=== PATIENT | female | born 1965 | race Caucasian/White ===

== ENCOUNTER 2017-03-28 16:14 | Observation (INO) | payer OTHER ==
[2017-03-28] MEDS ORDERED: NITROGLYCERIN OINT 1 INCH/GM PACKET TOPICAL STA (17:28)
[2017-03-28] MEDS ORDERED: MORPHINE SULFATE 2 MG/ML SYRINGE IVP STA (17:28)
[2017-03-28] MEDS: SODIUM CHLORIDE 0.9% 1,000 ML IV STA (17:43)
[2017-03-28 17:48] LABS: Basophils % (A) 0 %; CH 29.5; Eosinophils # (A) 0.3 k/uL (0-0.7); Eosinophils % (A) 5 %; HCT 36.8 % (34.0-46.0); HDW 2.59; HGB 11.7 gm/dL (11.4-16.0); Luc # (Auto) 0.15; Luc % (Auto) 2; Lymphocytes # (A) 2.4 k/uL (1.0-4.8); Lymphocytes % (A) 38 %; MCH 28.6 pg (25.0-35.0); MCHC 31.8 g/dL (31.0-37.0); MCV 89.9 fL (80.0-100.0); Mean Platelet Volume 6.6; Monocytes # (A) 0.4 k/uL (0-1.0); Monocytes % (A) 6 %; Neutrophils # (A) 3.1 k/uL (1.3-7.7); Neutrophils % (A) 49 %; RBC 4.09 m/uL (3.80-5.40); RDW 13.6 % (11.5-15.5); WBC 6.4 k/uL (3.8-10.6); WBC (Perox) 6.36
[2017-03-28 17:59] LABS: Partial Thromboplastin Time 22.5 sec (22.0-30.0); Prothrombin Time 10.5 sec (9.0-12.0)
[2017-03-28 18:03] LABS: ALT 49 U/L (9-52); AST 30 U/L (14-36); Alkaline Phosphatase 58 U/L (38-126); Anion Gap 8 mmol/L; Blood Urea Nitrogen 16 mg/dL (7-17); Calcium 9.3 mg/dL (8.4-10.2); Carbon Dioxide 26 mmol/L (22-30); Chloride 104 mmol/L (98-107); Glucose 82 mg/dL (74-99); Magnesium 1.8 mg/dL (1.6-2.3); Non-African American GFR(MDRD) >60 (>60 ml/min/1.73 sqM); Potassium 4.3 mmol/L (3.5-5.1); Sodium 138 mmol/L (137-145); Total Bilirubin 0.2 mg/dL (0.2-1.3); Total Protein 6.6 g/dL (6.3-8.2)
[2017-03-28 18:10] LABS: Creatine Kinase 350 U/L (30-135)
--- NOTE | 2017-03-28 18:16 | XR ---
EXAMINATION TYPE: XR chest 2V DATE OF EXAM: 03/28/2017 COMPARISON: NONE HISTORY: Chest pain TECHNIQUE: Frontal and lateral views of the chest are obtained. FINDINGS: There is no heart failure nor confluent pneumonic infiltrate. There is mild coarsening of interstitial markings. There is no pleural effusion. Bony thorax is intact. Thoracic aorta is atherom atous. There are chest leads. IMPRESSION: No heart failure. Mild interstitial fibrotic changes.
[2017-03-28 18:24] LABS: Troponin I <0.012 ng/mL (0.000-0.034)
[2017-03-28 18:27] LABS: Creatine Kinase MB 3.5 ng/mL (0.0-2.4)
--- NOTE | 2017-03-28 18:36 | CT ---
EXAMINATION TYPE: CT brain wo con DATE OF EXAM: 03/28/2017 COMPARISON: NONE HISTORY: Patient complains of episode of slurred speech yesterday. Patient denies headache or dizzin ess. CT DLP: 700.2 mGycm Automated exposure control for dose reduction was used. FINDINGS: Ventricles have normal size. There is no mass effect nor midline shift. There is no sign of intracran ial hemorrhage. The calvarium is intact. IMPRESSION: NEGATIVE CT SCAN OF THE BRAIN.
[2017-03-28 19:19] VITALS: RESP 18
--- NOTE | 2017-03-28 19:55 | ED ---
Chest Pain HPI - General Chief Complaint: Chest Pain Stated Complaint: Chest Pain Time Seen by Provider: 03/28/17 17:12 Source: patient Mode of arrival: wheelchair Limitations: no limitations - History of Present Illness Initial Comments: 52 years old female with a history of diabetes hypertension and gastroesophageal reflux disease and chest pain 4 PM today pain started in the epigastric area and radiated down towards the sternal notch, has some shortness of breath and the chest pain was worse with deep breaths. Denies any jaw pain any left arm pain no nausea no vomiting no cold sweats chest pain has resolved and do not extend on arrival to the ER she still short of breath and review of system is negative otherwise - Related Data Home Medications Medication Instructions Recorded Confirmed Aspirin 325 mg PO DAILY 03/28/17 03/28/17 Atenolol [Tenormin] 50 mg PO DAILY 03/28/17 03/28/17 Citalopram Hydrobromide [CeleXA] 20 mg PO DAILY 03/28/17 03/28/17 Levothyroxine Sodium [Synthroid] 137 mcg PO DAILY 03/28/17 03/28/17 Linagliptin [Tradjenta] 5 mg PO DAILY 03/28/17 03/28/17 Omeprazole 40 mg PO DAILY 03/28/17 03/28/17 Pioglitazone [Actos] 45 mg PO DAILY 03/28/17 03/28/17 glipiZIDE XL [Glucotrol Xl] 10 mg PO DAILY 03/28/17 03/28/17 metFORMIN HCL 1,500 mg PO BID 03/28/17 03/28/17 Allergies Allergy/AdvReac Type Severity Reaction Status Date / Time bupropion [From Wellbutrin] Allergy Unknown Verified 03/28/17 16:31 Review of Systems ROS Statement: Those systems with pertinent positive or pertinent negative responses have been documented in the HPI. ROS Other: All systems not noted in ROS Statement are negative. EKG Findings - EKG Comments: EKG Findings:: EKG is normal sinus rhythm ventricular rate is 76 ME interval is 134 QRS duration is 88 ME interval, QT/QTc is 48/459 review of this EKG does not reveal any ST elevation or ST depression Past Medical History Past Medical History: Diabetes Mellitus, Hypertension, Thyroid Disorder History of Any Multi-Drug Resistant Organisms: None Reported Past Surgical History: Cholecystectomy, Orthopedic Surgery, Tonsillectomy Past Psychological History: Anxiety Smoking Status: Former smoker Past Alcohol Use History: Occasional Past Drug Use History: None Reported General Exam - General Exam Comments Initial Comments: General: The patient is awake and alert, in no distress, and does not appear acutely ill. Skin: Skin is warm and dry and no rashes or lesions are noted. Eye: Pupils are equal, round and reactive to light, extra-ocular movements are intact; there is normal conjunctiva bilaterally. Ears, nose, mouth and throat: There are moist mucous membranes and no oral lesions. Neck: The neck is supple, there is no tenderness or JVD. Cardiovascular: There is a regular rate and rhythm. No murmur, rub or gallop is appreciated. Respiratory: To auscultation bilateral, no wheezing no rhonchi no distress respiratory trujillo noticed Gastrointestinal: Soft, non-distended, non-tender abdomen without masses or organomegaly noted. There is no rebound or guarding present. Bowel sounds are unremarkable. Back: There is no tenderness to palpation in the midline. There is no obvious deformity. Musculoskeletal: Normal ROM, no tenderness, There is no pedal edema. There is no calf tenderness or swelling. No cords were appreciated. Neurological: CN II-XII intact, Cranial nerves III through XII are intact. There are no obvious motor or sensory deficits. Coordination appears grossly intact. Speech is normal. Psychiatric: Cooperative, appropriate mood & affect, normal judgment. Limitations: no limitations Course Vital Signs 03/28/17 03/28/17 03/28/17 16:17 18:36 19:18 Temperature 98.2 F Pulse Rate 78 68 76 Respiratory 20 16 18 Rate Blood Pressure 155/70 103/54 109/56 O2 Sat by Pulse 98 99 97 Oximetry 03/28/17 19:19 Temperature Pulse Rate 71 Respiratory 18 Rate Blood Pressure 102/47 O2 Sat by Pulse 97 Oximetry Critical Care Time Total Critical Care Time: 30 Critical Care Time: History of diabetes hypertension and gastroesophageal reflux disease considering her risk factors of EKG and troponin are negative she be hospitalized she will be heparinized and cardiology be consulted she also had a slurred speech for that we do the head CT head CT is normal after any bleed is ruled out for now she will be getting an aspirin and heparin Disposition Clinical Impression: Chest pain, Slurred speech Disposition: ADMITTED IP TO THIS HOSP Condition: Good Referrals: Sanches,Cordell, DO [Primary Care Provider] - 1-2 days
[2017-03-28] MEDS ORDERED: MORPHINE SULFATE 10 MG/ML SYRINGE IVP PRN (19:56)
[2017-03-28] MEDS ORDERED: HEPARIN SODIUM,PORCINE 5,000 UNIT/ML 1 ML VIAL IV ONE (19:56)
[2017-03-28] MEDS ORDERED: NITROGLYCERIN SL TABS 0.4 MG TAB SUBLINGUAL PRN (19:56)
[2017-03-28] MEDS ORDERED: HEPARIN SODIUM,PORCINE/D5W PMX 25,000 UNIT in DEXTROSE/WATER 1 500ML.BAG IV SCH (20:00)
[2017-03-28] MEDS: ACETAMINOPHEN TAB 325 MG TAB PO PRN (20:21)
[2017-03-28 23:32] LABS: Creatine Kinase 322 U/L (30-135)
[2017-03-28 23:45] LABS: Troponin I <0.012 ng/mL (0.000-0.034)
[2017-03-28 23:47] LABS: Creatine Kinase MB 3.1 ng/mL (0.0-2.4)
[2017-03-29] MEDS: ACETAMINOPHEN TAB 325 MG TAB PO PRN (05:05)
[2017-03-29 06:06] LABS: Cholesterol 195 mg/dL (<200); HDL Cholesterol 44 mg/dL (40-60)
[2017-03-29 06:13] LABS: Creatine Kinase 318 U/L (30-135)
[2017-03-29 06:24] LABS: Troponin I <0.012 ng/mL (0.000-0.034)
[2017-03-29 06:28] LABS: Creatine Kinase MB 3.5 ng/mL (0.0-2.4)
[2017-03-29] MEDS ORDERED: LEVOTHYROXINE 137 MCG TAB PO SCH (06:30)
[2017-03-29 07:30] LABS: Glucose,Whole Blood 121 mg/dL (75-99)
[2017-03-29] MEDS ORDERED: PANTOPRAZOLE 40 MG TABLET PO SCH (07:30)
[2017-03-29] MEDS ORDERED: glipiZIDE 5 MG TAB PO SCH (07:30)
[2017-03-29] MEDS ORDERED: CITALOPRAM HYDROBROMIDE 20 MG TAB PO SCH (09:00)
[2017-03-29] MEDS ORDERED: ATORVASTATIN 20 MG TAB PO SCH (09:00)
[2017-03-29] MEDS ORDERED: LINAGLIPTIN 5 MG TABLET PO SCH (09:00)
[2017-03-29] MEDS ORDERED: ASPIRIN 325 MG TAB PO SCH (09:00)
[2017-03-29] MEDS ORDERED: ATENOLOL 50 MG TAB PO SCH (09:00)
[2017-03-29] MEDS ORDERED: metFORMIN 500 MG TAB PO SCH (09:00)
[2017-03-29] MEDS ORDERED: PIOGLITAZONE 45 MG TAB PO SCH (09:00)
[2017-03-29] MEDS ORDERED: ALPRAZolam 0.25 MG TAB PO PRN (09:05)
[2017-03-29] MEDS ORDERED: ALPRAZolam 0.5 MG TAB PO PRN (09:05)
[2017-03-29] MEDS ORDERED: NITROGLYCERIN SL TABS 0.4 MG TAB SUBLINGUAL PRN (09:05)
[2017-03-29] MEDS ORDERED: ASPIRIN 325 MG TAB PO STA (09:05)
[2017-03-29] MEDS ORDERED: ATORVASTATIN 80 MG TAB PO STA (09:05)
[2017-03-29] MEDS ORDERED: SODIUM CHLORIDE 0.9% 1,000 ML in EMPTY BAG 1 BAG IV ONE (09:05)
--- NOTE | 2017-03-29 10:21 | P.CRDCN ---
History of Present Illness Consult date: 03/29/17 History of present illness: This is a 52-year-old female past medical history significant for hypertension, diabetes mellitus, obesity and former tobacco abuse. She quit smoking 3 years ago. She denies history of coronary artery disease and has never seen a hand profiler for any reason or undergone stress testing. She states yesterday while she was at work around 4 PM she was doing her normal routine and experienced midsternal chest tightness and squeezing up into her neck and around to her back. This persisted for about 2-3 minutes and then seemed to subside. It then recurred again a couple of minutes later. She complains of associated nausea and dizziness. She denies shortness of breath, palpitations or diaphoresis. She states she has gastroesophageal reflux disease which he takes omeprazole but this felt different to her. EKG on arrival sinus mechanism with no acute ST or T-wave abnormalities. Chest x-ray negative for any acute cardiopulmonary process. Blood pressure 134/73 with heart rate is 77. Cardiac enzymes negative 3, hemoglobin 11.7, platelets 310, d-dimer negative, potassium 4.3, magnesium 1.8, BUN 16, creatinine 0.8. Current cardiac medications include aspirin 325 mg daily and atenolol 50 mg daily. Review of Systems CONSTITUTIONAL: Denies fever. Denies chills. EYES: Denies blurred vision. Denies vision changes. Denies eye pain. EARS, NOSE, MOUTH & THROAT: Denies headache. Denies sore throat. Denies ear pain. CARDIOVASCULAR: Complains of one episode of chest tightness, resolved. Denies shortness of breath. Denies orthopnea. Denies PND. Denies palpitations. RESPIRATORY: Denies cough. GASTROINTESTINAL: Denies abdominal pain. Denies diarrhea. Denies constipation. Denies nausea. Denies vomitng. MUSCULOSKELETAL: Denies myalgias. INTEGUMENTARY: Denies pruitis. Denies rash. NEUROLOGIC: Denies numbness. Denies tingling. Denies weakness. PSYCHIATRIC: Denies anxiety. Denies depression. ENDOCRINE: Denies fatigue. Denies weight change. Denies polydipsia. Denies polyurina. GENITOURINARY: Denies burning, hematuria or urgency with micturation. HEMATOLOGIC: Denies history of anemia. Denies bleeding. Past Medical History Past Medical History: Asthma, Diabetes Mellitus, GERD/Reflux, Hypertension, Thyroid Disorder Additional Past Medical History / Comment(s): "ASTHMA WHEN I WAS A BABY", HIATAL HERNIA,MIGRAINES FROM AGE 6 TILL AGE 28 STATED AFTER THYROID WAS TX HAD NO MORE MIGRAINES AND WENT INTO EARLY MENOPAUSE .GRAVES DISEASE-"HAD HER THYROID RADIOACTIVELY DISSOLVED", ANXIETY, KIDNEY STONES, START OF CATARACTS. History of Any Multi-Drug Resistant Organisms: None Reported Past Surgical History: Cholecystectomy, Orthopedic Surgery, Tonsillectomy Additional Past Surgical History / Comment(s): LITHOTRIPSY, LAPROSCOPIC SX, LT MEDIAL/LAT TIB SX D/T INJURY, THYROID RADIOACTIVEY DISSOLVED. Past Anesthesia/Blood Transfusion Reactions: No Reported Reaction Smoking Status: Former smoker - Past Family History Father Family Medical History: Dementia, Diabetes Mellitus Mother Family Medical History: Diabetes Mellitus, Thyroid Disorder Additional Family Medical History / Comment(s): GRAVES DISEASE,HERNIA,DJD-LT KNEE REPLACMENT. INTESTINAL ABCESS-HAD COLOSTOMY-SINCE REVERSED AND BLADDER SX. Medications and Allergies Home Medications Medication Instructions Recorded Confirmed Type Aspirin 325 mg PO DAILY 03/28/17 03/28/17 History Atenolol [Tenormin] 50 mg PO DAILY 03/28/17 03/28/17 History Citalopram Hydrobromide [CeleXA] 20 mg PO DAILY 03/28/17 03/28/17 History Levothyroxine Sodium [Synthroid] 137 mcg PO DAILY 03/28/17 03/28/17 History Linagliptin [Tradjenta] 5 mg PO DAILY 03/28/17 03/28/17 History Omeprazole 40 mg PO DAILY 03/28/17 03/28/17 History Pioglitazone [Actos] 45 mg PO DAILY 03/28/17 03/28/17 History glipiZIDE XL [Glucotrol Xl] 10 mg PO DAILY 03/28/17 03/28/17 History metFORMIN HCL 1,000 mg PO DAILY 03/28/17 03/28/17 History Allergies Allergy/AdvReac Type Severity Reaction Status Date / Time bupropion [From Wellbutrin] Allergy Unknown Verified 03/28/17 21:52 Physical Exam Vitals: Vital Signs Temp Pulse Pulse Resp BP BP Pulse Ox 03/29/17 07:39 97.4 F L 77 18 134/73 95 03/29/17 04:00 98.4 F 80 18 126/50 94 L 03/29/17 00:00 70 18 03/28/17 22:56 97.8 F 67 18 101/47 94 L 03/28/17 22:55 97.6 F 68 18 110/53 94 L 03/28/17 22:00 18 03/28/17 20:23 77 18 123/63 99 03/28/17 19:19 71 18 102/47 97 03/28/17 19:18 76 18 109/56 97 03/28/17 18:36 68 16 103/54 99 03/28/17 16:17 98.2 F 78 20 155/70 98 Intake and Output 03/28/17 03/29/17 03/29/17 22:59 06:59 14:59 Intake Total 440 521.233 Balance 440 521.233 Intake: Intake, IV Titration 40 521.233 Amount Heparin Sodium,Porcine/ 20 361.233 D5w Pmx 25,000 unit In Dextrose/Water 1 500ml. bag @ 9.38 UNITS/KG/HR 19 .99 mls/hr IV .Q24H [facility]TI[facility] Rx#:[id number] Sodium Chloride 0.9% 1, 20 160 000 ml @ 100 mls/hr IV . Q10H STA Rx#:[id number] Oral 400 Other: # Voids 2 Weight 106.594 kg GENERAL: This is a 52-year-old female in no apparent distress at the time of my examination. Morbidly obese. HEENT: Head is atraumatic, normocephalic. Pupils are equal, round. Sclerae anicteric. Conjunctivae are clear. Mucous membranes of the mouth are moist. Neck is supple. There is no jugular venous distention. No carotid bruit is heard. LUNGS: Clear to auscultation no wheezes, rales or rhonchi. No chest wall tenderness is noted on palpation or with deep breathing. HEART: Regular rate and rhythm without murmurs, rubs or gallops. S1 and S2 heard. ABDOMEN: Soft, nontender. Bowel sounds are heard. No organomegaly noted. EXTREMITIES: 2+ peripheral pulses with no evidence of peripheral edema and no calf tenderness noted. NEUROLOGIC: Patient is awake, alert and oriented x3. Results 03/28/17 17:12 03/28/17 17:12 Cardiac Enzymes 03/28/17 03/28/17 03/28/17 Range/Units 17:12 17:12 22:49 AST 30 (14-36) U/L CK-MB (CK-2) 3.5 H* 3.1 H* (0.0-2.4) ng/mL Troponin I <0.012 <0.012 (0.000-0.034) ng/mL 03/29/17 Range/Units 05:30 AST (14-36) U/L CK-MB (CK-2) 3.5 H* (0.0-2.4) ng/mL Troponin I <0.012 (0.000-0.034) ng/mL Coagulation 03/28/17 03/29/17 Range/Units 17:12 05:30 PT 10.5 (9.0-12.0) sec APTT 22.5 28.8 (22.0-30.0) sec Lipids 03/29/17 Range/Units 05:30 Triglycerides 235 H (<150) mg/dL Cholesterol 195 (<200) mg/dL HDL Cholesterol 44 (40-60) mg/dL CBC 03/28/17 Range/Units 17:12 WBC 6.4 (3.8-10.6) k/uL RBC 4.09 (3.80-5.40) m/uL Hgb 11.7 (11.4-16.0) gm/dL Hct 36.8 (34.0-46.0) % Plt Count 310 (150-450) k/uL Comprehensive Metabolic Panel 03/28/17 Range/Units 17:12 Sodium 138 (137-145) mmol/L Potassium 4.3 (3.5-5.1) mmol/L Chloride 104 (98-107) mmol/L Carbon Dioxide 26 (22-30) mmol/L BUN 16 (7-17) mg/dL Creatinine 0.80 (0.52-1.04) mg/dL Glucose 82 (74-99) mg/dL Calcium 9.3 (8.4-10.2) mg/dL AST 30 (14-36) U/L ALT 49 (9-52) U/L Alkaline Phosphatase 58 (38-126) U/L Total Protein 6.6 (6.3-8.2) g/dL Albumin 3.8 (3.5-5.0) g/dL Current Medications Generic Name Dose Route Start Last Admin Trade Name Freq PRN Reason Stop Dose Admin Acetaminophen 650 mg 03/28/17 19:56 03/29/17 05:05 Tylenol Tab PO 650 mg Q4HR PRN Administration Pain Aspirin 325 mg 03/29/17 09:00 Aspirin PO DAILY [facility] Atenolol 50 mg 03/29/17 09:00 Tenormin PO DAILY [facility] Citalopram Hydrobromide 20 mg 03/29/17 09:00 Celexa PO DAILY [facility] Glipizide 5 mg 03/29/17 07:30 Glucotrol PO AC-BID [facility] Heparin Sodium/Dextrose 25,000 500 mls @ 19.99 mls/hr 03/28/17 20:00 06:21 unit/ IV Solution IV 12.38 units/kg/hr .Q24H ORTIZ 26.39 mls/hr Protocol Titration 9.38 UNITS/KG/HR Levothyroxine Sodium 137 mcg 03/29/17 06:30 03/29/17 05:08 Synthroid PO 137 mcg 0630 [facility]TIZ Administration Linagliptin 5 mg 03/29/17 09:00 Tradjenta PO DAILY [facility] Metformin HCl 1,000 mg 03/29/17 09:00 Glucophage PO DAILY [facility] Morphine Sulfate 2 mg 03/28/17 19:56 Morphine Sulfate (Inj) IVP Q5M PRN Chest Pain Nitroglycerin 0.4 mg 03/28/17 19:56 Nitrostat SUBLINGUAL Q5M PRN Chest Pain Pantoprazole Sodium 40 mg 03/29/17 07:30 Protonix PO AC-BRKFST [facility] Pioglitazone HCl 45 mg 03/29/17 09:00 Actos PO DAILY [facility] Intake and Output 03/28/17 03/29/17 03/29/17 22:59 06:59 14:59 Intake Total 440 521.233 Balance 440 521.233 Intake: Intake, IV Titration 40 521.233 Amount Heparin Sodium,Porcine/ 20 361.233 D5w Pmx 25,000 unit In Dextrose/Water 1 500ml. bag @ 9.38 UNITS/KG/HR 19 .99 mls/hr IV .Q24H [facility] Rx#:[id number] Sodium Chloride 0.9% 1, 20 160 000 ml @ 100 mls/hr IV . Q10H [facility] Rx#:[id number] Oral 400 Other: # Voids 2 Weight 106.594 kg 03/28/17 17:12 03/28/17 17:12 Assessment and Plan Assessment: ASSESSMENT 1. Chest pain, multiple risk factors for symptoms suggestive of acute coronary syndrome. 2. Essential hypertension 3. Diabetes mellitus 4. History of significant tobacco abuse, quit 3 years ago 5. Morbid obesity PLAN Obtain 2-D echocardiogram and Doppler study to assess cardiac structure and function. Due to the fact that the presentation of these symptoms are suggestive of an acute coronary syndrome we have recommended she proceed with cardiac catheterization at this time. She also has multiple risk factors. I have discussed the risks, benefits and alternative therapies for the above-mentioned procedure and for both sedation/analgesia as well as necessary blood product administration, if indicated, as they pertain to this patient. The patient has indicated understanding and acceptance of the risks and procedures discussed. She has agreed to proceed with the above stated procedure. She has been scheduled for this morning. Nurse Practitioner note has been reviewed, I agree with a documented findings and plan of care. Patient was seen and examined.
[2017-03-29] MEDS ORDERED: LIDOCAINE 2% INJ 20 MG/ML (20 ML MDV) ONE (11:01)
[2017-03-29] MEDS ORDERED: fentaNYL (PF) 50 MCG/ML 2 ML AMP ONE (11:01)
[2017-03-29] MEDS ORDERED: HEPARIN SODIUM 1,000 UN/ML (10ML VL) ONE (11:02)
[2017-03-29] MEDS ORDERED: VERAPAMIL 2.5 MG/ML 2 ML AMP ONE (11:02)
[2017-03-29] MEDS ORDERED: fentaNYL (PF) 50 MCG/ML 2 ML AMP IV ONE (11:09)
[2017-03-29] MEDS ORDERED: SODIUM CHLORIDE 0.9% 500 ML IV ONE (11:09)
[2017-03-29] MEDS ORDERED: VERAPAMIL SYRINGE (5 MG/10 ML) INTRAARTER ONE ×2 (11:20→11:39)
[2017-03-29] MEDS ORDERED: NITROGLYCERIN 1000MCG/10ML SYRINGE INTRACORON ONE (11:27)
[2017-03-29] MEDS ORDERED: HEPARIN SODIUM 1,000 UN/ML (10ML VL) IV ONE (11:38)
[2017-03-29] MEDS ORDERED: IOHEXOL 350 MG/ML 125ML BOTTLE INJ ONE (11:39)
[2017-03-29] MEDS ORDERED: RX INFO: IV CONTRAST WAS GIVEN 1 EACH MISC MISCELLANE PRN (11:54)
[2017-03-29] MEDS ORDERED: SODIUM CHLORIDE 0.9% 500 ML IV SCH (12:00)
[2017-03-29] MEDS: SODIUM CHLORIDE 0.9% 1,000 ML IV STA (12:00)
[2017-03-29 12:03] LABS: Glucose,Whole Blood 96 mg/dL (75-99)
--- NOTE | 2017-03-29 12:48 | CC ---
CARDIAC CATHETERIZATION REPORT Mrs. Vo is a 52-year-old female, known history of hypertension, hyperlipidemia, diabetes mellitus, prior history of smoking and a family history of premature coronary artery disease, who presented with symptoms of chest discomfort. Her cardiac enzymes were unremarkable, but because of her multiple risk factors and her presentation, recommendation made regarding cardiac catheterization. The procedures, risks and complications were discussed with the patient who is in full understanding and agreement. PROCEDURE: Patient was brought to the Care Management Coordinator in a fasting semi-sedated state after receiving fentanyl and Benadryl and achieving moderate conscious sedated state. She was draped and prepped in conventional fashion using Xylocaine anesthesia and Seldinger technique, a 6-Turkish sheath was introduced in the right radial artery. Selective right and left coronary angiography were performed using 5-Turkish 3.5 bend right and left Ruben catheter. Multiple views of the coronary artery including hemiaxial views were obtained. Following that, a 5-Turkish tight pigtail catheter was introduced into the left ventricle and a 30 degree [place] view of the left ventricle was obtained. Following that, the catheter and sheaths were removed. Hemostasis was obtained with deployment of a TR band. There was no immediate complication. Patient was returned to her room in a stable condition. FINDINGS: 1. LEFT MAIN: This is a short-sized vessel, bifurcating into left circumflex, left anterior descending artery Left main coronary artery has no evidence of high-grade stenosis. 2. LEFT ANTERIOR DESCENDING ARTERY: This is a large-sized vessel reaching toward the apex with a wraparound apex segment giving rise to a moderate-sized diagonal branch. At this side of the takeoff of the diagonal branch, there is a plaque of 20% to 30%. The rest of the vessel has no high-grade stenosis. 3. LEFT CIRCUMFLEX: This is a nondominant vessel giving rise to a large obtuse marginal branch. The left circumflex at the takeoff of the obtuse marginal branch has a 20% to 30% plaque. The rest of the vessel has no high-grade stenosis. 4. RIGHT CORONARY ARTERY: This is a large dominant vessel, bifurcating into PDA and posterolateral segment and branches. There was catheter-induced spasm proximally that resolved with intracoronary nitroglycerin. The right coronary artery as well as branches have no evidence of obstructive disease. 5. LEFT VENTRICULOGRAM: Left ventriculogram was performed in 30 degree [place] view and revealed normal left ventricular size and systolic function. Ejection fraction 60%. There was no significant mitral regurgitation. 6. HEMODYNAMICS: There was no gradient across the aortic valve. The left ventricular end-diastolic pressure was 16 to 20 mmHg. CONCLUSION: 1. Mild coronary artery disease involving the left anterior descending artery and the left circumflex. 2. Normal left ventricular size and systolic function. RECOMMENDATION: In view of finding in the anatomy, I would recommend to continue medical therapy with aggressive risk factor modifications being initiated. Those findings and recommendation were discussed with the patient who was in full understanding and agreement. Duration of the procedure is 44 minutes. MMODL / IJN: [id number] /
--- NOTE | 2017-03-29 12:50 | ECHOF ---
Referral Reason:cp MEASUREMENTS -------- HEIGHT: 154.9 cm WEIGHT: 106.6 kg BP: IVSd: 1.4 cm (0.6 - 1.1) LVIDd: 3.6 cm (3.9 - 5.3) LVPWd: 1.4 cm (0.6 - 1.1) IVSs: 2.4 cm LVIDs: 2.1 cm LVPWs: 1.5 cm LAESV Index (A-L): 21.96 ml/m Ao Diam: 3.1 cm (2.0 - 3.7) AV Cusp: 1.8 cm (1.5 - 2.6) LA Diam: 3.4 cm (2.7 - 3.8) MV EXCURSION: 13.189 mm (> 18.000) MV EF SLOPE: 68 mm/s (70 - 150) EPSS: 0.5 cm MV E Curly: 1.12 m/s MV DecT: 260 ms MV A Curly: 1.28 m/s MV E/A Ratio: 0.88 RAP: 5.00 mmHg RVSP: 21.06 mmHg FINDINGS -------- Sinus rhythm. This was a technically difficult study with suboptimal views. The left ventricular size is normal. There is moderate concentric left ventricular hypertrophy. O verall left ventricular systolic function is normal with, an EF between 55 - 60 %. The right ventricle is normal in size and function. The left atrium is normal in size. The right atrium is normal in size. 1.5mg of Definity was utilized for enhancement of images The aortic valve is trileaflet, and appears structurally normal. No aortic stenosis or regurgitation. The mitral valve is normal. There is trace mitral regurgitation. Trace tricuspid regurgitation present. The right ventricular systolic pressure, as measured by Dopp ler, is 21.06mmHg. The pulmonic valve was not well visualized. There is no pulmonic regurgitation present. The aortic root size is normal. There is no pericardial effusion. CONCLUSIONS -------- 1. Sinus rhythm. 2. This was a technically difficult study with suboptimal views. 3. There is moderate concentric left ventricular hypertrophy. 4. Overall left ventricular systolic function is normal with, an EF between 55 - 60 %. 5. The left atrium is normal in size. 6. 1.5mg of Definity was utilized for enhancement of images 7. The aortic valve is trileaflet, and appears structurally normal. No aortic stenosis or regurgitati on. 8. There is trace mitral regurgitation. 9. Trace tricuspid regurgitation present. 10. The right ventricular systolic pressure, as measured by Doppler, is 21.06mmHg. 11. The pulmonic valve was not well visualized. 12. There is no pulmonic regurgitation present. 13. The aortic root size is normal. 14. There is no pericardial effusion. PRODUCT ENGINEER: Marce Ruiz RDCS
[2017-03-29 15:48] VITALS: BP 118/59; PULSE 76; TEMP 97.9
--- NOTE | 2017-03-29 16:22 | P.HPIM ---
History of Present Illness H&P Date: 03/29/17 Chief Complaint: Chest pain This is a 52-year-old female past medical history significant for hypertension, diabetes mellitus, obesity and former tobacco abuse. She states yesterday while she was at work around 4 PM she was doing her normal routine and experienced midsternal chest tightness and squeezing up into her neck and around to her back rated it 7/10. This persisted for about 2-3 minutes and then seemed to subside. It then recurred again a couple of minutes later. She complains of associated nausea and dizziness. She denies shortness of breath, palpitations or diaphoresis. She states she has gastroesophageal reflux disease which he takes omeprazole but this felt different to her. She presented to the ER where her pulse was 78 blood pressure 155/70 O twos sats were 90% on room air her temperature is 90.8 8.2 and an EKG was done and showed normal sinus rhythm ventricular rate is 76 TX interval is 134 QRS duration is 88 TX interval, QT/QTc is 48/459 review of this EKG does not reveal any ST elevation or ST depression she had 2 sets of troponins that were negative. Cartilage was counseled to the ER was recommended to heparinize the patient she did have evidence of sores CT head was done and was normal he received aspirin and then placed in heparin GTT. Cardiology evaluated the patient on the morning of 03/29/2017 and recommended due to her clinical presentation that suggests is acute coronary syndrome along with a past medical history and comorbid conditions she was taken to the cardiac cath and which she underwent a radial heart cath without intervention it was stated the patient will need medical management with aggressive risk factor modifications as she did have evidence of mild coronary artery disease involving the left anterior descending artery and the left circumflex patient also had a 2-D echocardiogram showed EF of 55-60% with moderate concentric left ventricular hypertrophy. Patient is returning back to her room in stable condition she laced on radial compress per protocol she was cleared for discharge from a cardiac standpoint patient's remained chest pain-free she tolerated her diet there was no excessive bleeding or hematoma to cath site patient was instructed to follow-up with her primary care physician along with cardiology. Review of Systems All systems: negative Constitutional: Reports as per HPI Past Medical History Past Medical History: Asthma, Diabetes Mellitus, GERD/Reflux, Hypertension, Thyroid Disorder Additional Past Medical History / Comment(s): "ASTHMA WHEN I WAS A BABY", HIATAL HERNIA,MIGRAINES FROM AGE 6 TILL AGE 28 STATED AFTER THYROID WAS TX HAD NO MORE MIGRAINES AND WENT INTO EARLY MENOPAUSE .GRAVES DISEASE-"HAD HER THYROID RADIOACTIVELY DISSOLVED", ANXIETY, KIDNEY STONES, START OF CATARACTS. History of Any Multi-Drug Resistant Organisms: None Reported Past Surgical History: Cholecystectomy, Orthopedic Surgery, Tonsillectomy Additional Past Surgical History / Comment(s): LITHOTRIPSY, LAPROSCOPIC SX, LT MEDIAL/LAT TIB SX D/T INJURY, THYROID RADIOACTIVEY DISSOLVED. Past Anesthesia/Blood Transfusion Reactions: No Reported Reaction Smoking Status: Former smoker - Past Family History Father Family Medical History: Dementia, Diabetes Mellitus Mother Family Medical History: Diabetes Mellitus, Thyroid Disorder Additional Family Medical History / Comment(s): GRAVES DISEASE,HERNIA,DJD-LT KNEE REPLACMENT. INTESTINAL ABCESS-HAD COLOSTOMY-SINCE REVERSED AND BLADDER SX. Medications and Allergies Home Medications Medication Instructions Recorded Confirmed Type Aspirin 325 mg PO DAILY 03/28/17 03/28/17 History Atenolol [Tenormin] 50 mg PO DAILY 03/28/17 03/28/17 History Citalopram Hydrobromide [CeleXA] 20 mg PO DAILY 03/28/17 03/28/17 History Levothyroxine Sodium [Synthroid] 137 mcg PO DAILY 03/28/17 03/28/17 History Linagliptin [Tradjenta] 5 mg PO DAILY 03/28/17 03/28/17 History Omeprazole 40 mg PO DAILY 03/28/17 03/28/17 History Pioglitazone [Actos] 45 mg PO DAILY 03/28/17 03/28/17 History glipiZIDE XL [Glucotrol Xl] 10 mg PO DAILY 03/28/17 03/28/17 History metFORMIN HCL 1,000 mg PO DAILY 03/28/17 03/28/17 History Atorvastatin [Lipitor] 40 mg PO DAILY #30 tab 03/29/17 Rx Allergies Allergy/AdvReac Type Severity Reaction Status Date / Time bupropion [From Wellbutrin] Allergy Unknown Verified 03/28/17 21:52 Physical Exam Vitals: Vital Signs Temp Pulse Pulse Resp BP BP Pulse Ox 03/29/17 15:47 97.9 F 76 18 118/59 94 L 03/29/17 13:40 82 117/56 96 03/29/17 13:10 80 115/58 96 03/29/17 12:40 92 146/78 93 L 03/29/17 12:25 67 138/77 93 L 03/29/17 12:10 76 151/74 96 03/29/17 12:00 18 03/29/17 11:55 98.1 F 76 18 135/79 95 03/29/17 07:39 97.4 F L 77 18 134/73 95 03/29/17 04:00 98.4 F 80 18 126/50 94 L 03/29/17 00:00 70 18 03/28/17 22:56 97.8 F 67 18 101/47 94 L 03/28/17 22:55 97.6 F 68 18 110/53 94 L 03/28/17 22:00 18 03/28/17 20:23 77 18 123/63 99 03/28/17 19:19 71 18 102/47 97 03/28/17 19:18 76 18 109/56 97 03/28/17 18:36 68 16 103/54 99 03/28/17 16:17 98.2 F 78 20 155/70 98 Intake and Output 03/29/17 03/29/17 03/29/17 06:59 14:59 22:59 Intake Total 521.233 410 Balance 521.233 410 Intake: IV 50 Intake, IV Titration 521.233 Amount Heparin Sodium,Porcine/ 361.233 D5w Pmx 25,000 unit In Dextrose/Water 1 500ml. bag @ 9.38 UNITS/KG/HR 19 .99 mls/hr IV .Q24H ORTIZ Rx#:[id number] Sodium Chloride 0.9% 1, 160 000 ml @ 100 mls/hr IV . Q10H STA Rx#:[id number] Oral 360 Other: # Voids 2 GENERAL: This is a 52-year-old female in no apparent distress over the obese sitting upright eating lunch she's calm cooperative nontoxic-appearing HEENT: Head is atraumatic, normocephalic. Pupils are equal, round. Sclerae anicteric. Conjunctivae are clear. Mucous membranes of the mouth are moist. Neck is supple. There is no jugular venous distention. No carotid bruit is heard. LUNGS: Clear to auscultation no wheezes, rales or rhonchi. No chest wall tenderness is noted on palpation or with deep breathing. HEART: Regular rate and rhythm without murmurs, rubs or gallops. S1 and S2 heard. ABDOMEN: Soft, nontender. Bowel sounds are heard. No organomegaly noted. EXTREMITIES: 2+ peripheral pulses with no evidence of peripheral edema and no calf tenderness noted. NEUROLOGIC: Patient is awake, alert and oriented x3. No focal deficits, face is symmetrical no droops speech is full clear and coherent Results CBC & Chem 7: 03/28/17 17:12 03/28/17 17:12 Labs: Abnormal Lab Results - Last 24 Hours (Table) 03/28/17 03/28/17 03/29/17 Range/Units 17:12 22:49 05:30 POC Glucose (mg/dL) (75-99) mg/dL Hemoglobin A1c 6.4 H (4.0-6.0) % Total Creatine Kinase 350 H 322 H (30-135) U/L CK-MB (CK-2) 3.5 H* 3.1 H* (0.0-2.4) ng/mL Triglycerides (<150) mg/dL LDL Cholesterol, Calc (0-99) mg/dL 03/29/17 03/29/17 03/29/17 Range/Units 05:30 05:30 07:25 POC Glucose (mg/dL) 121 H (75-99) mg/dL Hemoglobin A1c (4.0-6.0) % Total Creatine Kinase 318 H (30-135) U/L CK-MB (CK-2) 3.5 H* (0.0-2.4) ng/mL Triglycerides 235 H (<150) mg/dL LDL Cholesterol, Calc 104 H (0-99) mg/dL Thrombosis Risk Factor Assmnt - Choose All That Apply Any of the Below Risk Factors Present?: Yes Each Factor Represents 1 point: Age 41-60 years, Obesity (BMI >25) Other Risk Factors: No Other congenital or acquired thrombophilia - If yes, enter type in comment: No Thrombosis Risk Factor Assessment Total Risk Factor Score: 2 Thrombosis Risk Factor Assessment Level: Low Risk Assessment and Plan Assessment: ASSESSMENT 1. Chest pain, multiple risk factors for symptoms suggestive of acute coronary syndrome. Patient status post radial heart cath that showed mild coronary artery disease in the left anterior descending along the left circumflex cardiology recommends aggressive risk active modifications. Patient's are to follow with cardiology and outpatient she will be placed on atenolol Lipitor patient instructed on left side modifications improper eating habits 2. Essential hypertension patient to continue with atenolol 3. Diabetes mellitus2 patient on metformin glipizide and Actos hold these medications and resume on 03/30/2017 4. History of significant tobacco abuse, quit 3 years ago 5. Morbid obesity 6.Patient is to resume Synthroid 137 mics daily 7. GERD patient to resume omeprazole 8. History of depression patient to resume Celexa Patient to be discharged once hemostasis was achieved on her right radial artery. Time with Patient: Greater than 30
--- NOTE | 2017-03-29 16:29 | P.DS ---
Providers Date of admission: 03/28/17 19:56 Expected date of discharge: 03/29/17 Attending physician: Yashira Patiño Consults: 03/28/17 19:56 Consult Physician Urgent Consulting Provider: Errol Cheema Consult Reason/Comments: Chest pain Do you want consulting provider notified?: Yes Primary care physician: Cordell Sanches [facility] Course: This is a 52-year-old female past medical history significant for hypertension, diabetes mellitus, obesity and former tobacco abuse. She states yesterday while she was at work around 4 PM she was doing her normal routine and experienced midsternal chest tightness and squeezing up into her neck and around to her back rated it 7/10. This persisted for about 2-3 minutes and then seemed to subside. It then recurred again a couple of minutes later. She complains of associated nausea and dizziness. She denies shortness of breath, palpitations or diaphoresis. She states she has gastroesophageal reflux disease which he takes omeprazole but this felt different to her. She presented to the ER where her pulse was 78 blood pressure 155/70 O twos sats were 90% on room air her temperature is 90.8 8.2 and an EKG was done and showed normal sinus rhythm ventricular rate is 76 ID interval is 134 QRS duration is 88 ID interval, QT/QTc is 48/459 review of this EKG does not reveal any ST elevation or ST depression she had 2 sets of troponins that were negative. Cartilage was counseled to the ER was recommended to heparinize the patient she did have evidence of sores CT head was done and was normal he received aspirin and then placed in heparin GTT. Cardiology evaluated the patient on the morning of 03/29/2017 and recommended due to her clinical presentation that suggests is acute coronary syndrome along with a past medical history and comorbid conditions she was taken to the cardiac cath and which she underwent a radial heart cath without intervention it was stated the patient will need medical management with aggressive risk factor modifications as she did have evidence of mild coronary artery disease involving the left anterior descending artery and the left circumflex patient also had a 2-D echocardiogram showed EF of 55-60% with moderate concentric left ventricular hypertrophy. Patient is returning back to her room in stable condition she laced on radial compress per protocol she was cleared for discharge from a cardiac standpoint patient's remained chest pain-free she tolerated her diet there was no excessive bleeding or hematoma to cath site patient was instructed to follow-up with her primary care physician along with cardiology. ASSESSMENT 1. Chest pain, multiple risk factors for symptoms suggestive of acute coronary syndrome. Patient status post radial heart cath that showed mild coronary artery disease in the left anterior descending along the left circumflex cardiology recommends aggressive risk active modifications. Patient's are to follow with cardiology and outpatient she will be placed on atenolol Lipitor patient instructed on left side modifications improper eating habits 2. Essential hypertension patient to continue with atenolol 3. Diabetes mellitus2 patient on metformin glipizide and Actos hold these medications and resume on 03/30/2017 4. History of significant tobacco abuse, quit 3 years ago 5. Morbid obesity 6.Patient is to resume Synthroid 137 mics daily 7. GERD patient to resume omeprazole 8. History of depression patient to resume Celexa Patient to be discharged once hemostasis was achieved on her right radial artery. Procedures: Cardiac catheterization via right radial artery. 2-D echocardiogram Patient Condition at Discharge: Good Plan - Discharge Summary Discharge Rx Participant: Yes New Discharge Prescriptions: New Atorvastatin [Lipitor] 40 mg PO DAILY #30 tab Nitroglycerin Sl Tabs [Nitrostat] 0.4 mg SUBLINGUAL Q5M PRN #20 tab PRN Reason: Chest Pain Continue Omeprazole 40 mg PO DAILY Aspirin 325 mg PO DAILY Levothyroxine Sodium [Synthroid] 137 mcg PO DAILY Citalopram Hydrobromide [CeleXA] 20 mg PO DAILY Atenolol [Tenormin] 50 mg PO DAILY glipiZIDE XL [Glucotrol XL] 10 mg PO DAILY #0 Linagliptin [Tradjenta] 5 mg PO DAILY #0 metFORMIN HCL 1,000 mg PO DAILY #0 Pioglitazone [Actos] 45 mg PO DAILY #0 Discharge Medication List Aspirin 325 mg PO DAILY 03/28/17 [History] Atenolol [Tenormin] 50 mg PO DAILY 03/28/17 [History] Citalopram Hydrobromide [CeleXA] 20 mg PO DAILY 03/28/17 [History] Levothyroxine Sodium [Synthroid] 137 mcg PO DAILY 03/28/17 [History] Omeprazole 40 mg PO DAILY 03/28/17 [History] Atorvastatin [Lipitor] 40 mg PO DAILY #30 tab 03/29/17 [Rx] Linagliptin [Tradjenta] 5 mg PO DAILY #0 03/29/17 [Rx] Nitroglycerin Sl Tabs [Nitrostat] 0.4 mg SUBLINGUAL Q5M PRN #20 tab 03/29/17 [Rx ] Pioglitazone [Actos] 45 mg PO DAILY #0 03/29/17 [Rx] glipiZIDE XL [Glucotrol XL] 10 mg PO DAILY #0 03/29/17 [Rx] metFORMIN HCL 1,000 mg PO DAILY #0 03/29/17 [Rx] Follow up Appointment(s)/Referral(s): Van Payne MD [STAFF PHYSICIAN] - 1 Week (Patient has followup appointment April 06 8:45am) Cordell Sanches DO [Primary Care Provider] - 1-2 days Activity/Diet/Wound Care/Special Instructions: Hold Metformin for 48 hours. Discharge Disposition: HOME SELF-CARE
[2017-03-30] MEDS ORDERED: ATORVASTATIN 40 MG TAB PO SCH (09:00)
[2017-03-30] MEDS ORDERED: ASPIRIN 81 MG PO SCH (09:00)
[2017-03-30] MEDS ORDERED: ASPIRIN 325 MG TAB PO SCH (09:00)
[2017-03-30] MEDS ORDERED: ATORVASTATIN 20 MG TAB PO SCH (09:00)
== END 2017-03-29 17:00 | disposition home or self-care (01) ==
LOC: EC 16:14 → 3OBS 19:56
PROVIDERS: ADMIT Hospitalist; ATTEND Hospitalist
DX: I25.10 Atherosclerotic heart disease of native coronary artery without angina pectoris (principal); E11.9 Type 2 diabetes mellitus without complications; I10 Essential (primary) hypertension; K21.9 Gastro-esophageal reflux disease without esophagitis; F41.9 Anxiety disorder, unspecified; E05.00 Thyrotoxicosis with diffuse goiter without thyrotoxic crisis or storm; J45.909 Unspecified asthma, uncomplicated; E66.01 Morbid (severe) obesity due to excess calories; R47.81 Slurred speech; Z79.82 Long term (current) use of aspirin; Z79.899 Other long term (current) drug therapy; Z79.84 Long term (current) use of oral hypoglycemic drugs; Z88.8 Allergy status to other drugs, medicaments and biological substances; Z87.891 Personal history of nicotine dependence; Z68.41 Body mass index [BMI] 40.0-44.9, adult; F32.9 Major depressive disorder, single episode, unspecified
CPT/HCPCS: 96366 ×2; 96376; 96365; 99291; 36415; 93005; 93306; 93458; 85379; 80061; 80053; 82550 ×2; 82553 ×2; 83735; 84484 ×2; 85025; 85610; 85730 ×2; 83036; 71020; 70450; G0378 ×2; C1894; C1769; J1644 ×3; J3010; Q9957; Q9967

== ENCOUNTER 2018-07-19 08:07 | Emergency (ER) | payer OTHER ==
[2018-07-19] MEDS ORDERED: SODIUM CHLORIDE 0.9% 500 ML 500 ML IV STA (08:26)
--- NOTE | 2018-07-19 08:42 | ED ---
Abdominal Pain HPI - General Chief Complaint: Abdominal Pain Stated Complaint: Right side pain Time Seen by Provider: 07/19/18 08:26 Source: patient Mode of arrival: ambulatory Limitations: no limitations - History of Present Illness Initial Comments: 53-year-old female hypertension, diabetes and thyroid disorder presenting today for chief complaint of right upper quadrant abdominal pain that radiates towards the right side of her back. Patient states that she began experiencing right upper quadrant and right sided back pain around 1:30 PM yesterday, she states she thought it might be related to her back and presented to the chiropractor, she states this helped minimally however the pain returned this morning. Patient states she did have a recent ultrasound of her liver as she had routine blood draw with incidental finding of elevated liver enzymes, she states she is currently waiting for results of her hepatitis panel. Patient states she has had a previous cholecystectomy 12 years prior. Patient denies any trauma to the abdomen or back, fever, chills, jaundice, vomiting, diarrhea, chest pain, shortness of breath, dyspnea on exertion, lower extremity edema. Patient does admit to some occasional nausea. Patient states she has had a previous cardiac catheterization in 2017, she states there was one tiny area of "blockage" but no stent was needed. Upon arrival today pt is ambulating without difficulty, appearing well no distress. Remaining ROS (-), patient denies any alcohol abuse, rash, numbness or tingling, dysuria or hematuria, constipation, headaches or visual changes, or any other complaints. - Related Data Home Medications Medication Instructions Recorded Confirmed Atenolol [Tenormin] 50 mg PO DAILY 03/28/17 07/19/18 Citalopram Hydrobromide [CeleXA] 20 mg PO DAILY 03/28/17 07/19/18 Levothyroxine Sodium [Synthroid] 137 mcg PO DAILY 03/28/17 07/19/18 Omeprazole 40 mg PO DAILY 03/28/17 07/19/18 Cholecalciferol [Vitamin D3] 1,000 unit PO DAILY 07/19/18 07/19/18 Etodolac 500 mg PO BID 07/19/18 07/19/18 Fenofibrate [Lofibra] 160 mg PO DAILY 07/19/18 07/19/18 Insulin Degludec [Tresiba] 30 units SQ HS 07/19/18 07/19/18 Pioglitazone [Actos] 30 mg PO DAILY 07/19/18 07/19/18 metFORMIN HCL 1,000 mg PO BID 07/19/18 07/19/18 Previous Rx's Medication Instructions Recorded Nitroglycerin Sl Tabs [Nitrostat] 0.4 mg SUBLINGUAL Q5M PRN #20 tab 03/29/17 Allergies Allergy/AdvReac Type Severity Reaction Status Date / Time bupropion [From Wellbutrin] Allergy Unknown Verified 07/19/18 09:36 Review of Systems ROS Statement: Those systems with pertinent positive or pertinent negative responses have been documented in the HPI. ROS Other: All systems not noted in ROS Statement are negative. Past Medical History Past Medical History: Asthma, Diabetes Mellitus, GERD/Reflux, Hypertension, Thyroid Disorder Additional Past Medical History / Comment(s): "ASTHMA WHEN I WAS A BABY", HIATAL HERNIA,MIGRAINES FROM AGE 6 TILL AGE 28 STATED AFTER THYROID WAS TX HAD NO MORE MIGRAINES AND WENT INTO EARLY MENOPAUSE .GRAVES DISEASE-"HAD HER THYROID RADIOACTIVELY DISSOLVED", ANXIETY, KIDNEY STONES, START OF CATARACTS. History of Any Multi-Drug Resistant Organisms: None Reported Past Surgical History: Cholecystectomy, Orthopedic Surgery, Tonsillectomy Additional Past Surgical History / Comment(s): LITHOTRIPSY, LAPROSCOPIC SX, LT MEDIAL/LAT TIB SX D/T INJURY, THYROID RADIOACTIVEY DISSOLVED. Past Anesthesia/Blood Transfusion Reactions: No Reported Reaction Past Psychological History: Anxiety Smoking Status: Former smoker Past Alcohol Use History: Occasional Past Drug Use History: None Reported - Past Family History Father Family Medical History: Dementia, Diabetes Mellitus Mother Family Medical History: Diabetes Mellitus, Thyroid Disorder Additional Family Medical History / Comment(s): GRAVES DISEASE,HERNIA,DJD-LT KNEE REPLACMENT. INTESTINAL ABCESS-HAD COLOSTOMY-SINCE REVERSED AND BLADDER SX. General Exam - General Exam Comments Initial Comments: General: The patient is awake and alert, in no distress, and does not appear acutely ill. Eye: +3 mm pupils are equal, round and reactive to light, extra-ocular movements are intact. No nystagmus. There is normal conjunctiva bilaterally. No signs of icterus. Ears, nose, mouth and throat: There are moist mucous membranes and no oral lesions. Neck: The neck is supple, there is no tenderness or JVD. Cardiovascular: There is a regular rate and rhythm. No murmur, rub or gallop is appreciated. Respiratory: Lungs are clear to auscultation, respirations are non-labored, breath sounds are equal. No wheezes, stridor, rales, or rhonchi. Gastrointestinal: No noted diaphoresis, jaundice, pallor, protecting postures or squirming. Symmetrical pigmentation of abdomen without signs of inflammation. Umbilicus mildline, inverted without swelling. No dilated veins. Abdomen contour obese, no noted abdominal distention. No visible masses. No peristalsis, aortic pulsations, or ventral hernia. Bowel sounds audible in all 4 quadrants, unremarkable. No friction rubs or venous hums. Mild tenderness to palpation of the RUQ. No rigidity or guarding. Liver edge, not palpable. Spleen edge, right and left kidney not palpable. Superior bladder margin non-tender. Special Testing: Negative Perris, Rovsing, McBurney, Daniel, cutaneous hyperesthesia. Negative Heel Jar test. No CVA tenderness. Digital rectal exam deferred. Negative lopez turners or cullens sign Musculoskeletal: Normal ROM, no tenderness. Strength 5/5. Sensation intact. Pulses equal bilaterally 2+. Neurological: A&O x 3. CN II-XII intact, There are no obvious motor or sensory deficits. Coordination appears grossly intact. Speech is normal. Skin: Skin is warm and dry and no rashes or lesions are noted. Psychiatric: Cooperative, appropriate mood & affect, normal judgment. Limitations: no limitations Course Vital Signs 07/19/18 07/19/18 07/19/18 08:23 11:02 11:43 Temperature 98.1 F 98.6 F Pulse Rate 80 76 72 Respiratory 20 18 14 Rate Blood Pressure 124/75 152/91 145/70 O2 Sat by Pulse 94 L 97 92 L Oximetry Medical Decision Making - Medical Decision Making Well-appearing 53-year-old female with RUQ pain radiating toward back, with previous outpatient laboratory studies revealing elevated transaminases. Upon laboratory studies today these remain elevated. Ultrasound revealed no evidence of obstruction. CT was obtained revealing 1.5 cm left adrenal nodule, this appears incidental I did discuss this finding with patient as well as appropriate follow-up with GI referral. Other findings correlate with hepatic steatosis. Patient given morphine for pain and fluids. I discussed case with attending provider Dr. Ochoa who reviewed imaging studies recommending outpatient follow-up. Pt is hemodynamically stable denying any other associated symptoms. Pt is agreeable with plan and discharge. Pt given GI referral for further evaluation. Pt denied any urinary symptoms, pending urine culture. - Lab Data Result diagrams: 07/19/18 08:44 07/19/18 08:44 Lab Results 07/19/18 07/19/18 07/19/18 Range/Units 08:44 08:44 08:44 WBC 7.3 (3.8-10.6) k/uL RBC 4.62 (3.80-5.40) m/uL Hgb 13.1 (11.4-16.0) gm/dL Hct 40.7 (34.0-46.0) % MCV 88.2 (80.0-100.0) fL MCH 28.4 (25.0-35.0) pg MCHC 32.3 (31.0-37.0) g/dL RDW 13.9 (11.5-15.5) % Plt Count 379 (150-450) k/uL Neutrophils % 55 % Lymphocytes % 31 % Monocytes % 4 % Eosinophils % 7 % Basophils % 1 % Neutrophils # 4.0 (1.3-7.7) k/uL Lymphocytes # 2.3 (1.0-4.8) k/uL Monocytes # 0.3 (0-1.0) k/uL Eosinophils # 0.5 (0-0.7) k/uL Basophils # 0.1 (0-0.2) k/uL Sodium 139 (137-145) mmol/L Potassium 5.1 (3.5-5.1) mmol/L Chloride 103 (98-107) mmol/L Carbon Dioxide 24 (22-30) mmol/L Anion Gap 12 mmol/L BUN 17 (7-17) mg/dL Creatinine 0.81 (0.52-1.04) mg/dL Est GFR (CKD-EPI)AfAm >90 (>60 ml/min/1.73 sqM) Est GFR (CKD-EPI)NonAf 83 (>60 ml/min/1.73 sqM) Glucose 151 H (74-99) mg/dL Calcium 10.1 (8.4-10.2) mg/dL Total Bilirubin 0.5 (0.2-1.3) mg/dL AST 91 H (14-36) U/L ALT 89 H (9-52) U/L Alkaline Phosphatase 67 (38-126) U/L Troponin I (0.000-0.034) ng/mL Total Protein 7.4 (6.3-8.2) g/dL Albumin 4.5 (3.5-5.0) g/dL Amylase 41 (30-110) U/L Lipase 113 (23-300) U/L Urine Color Yellow Urine Appearance Clear (Clear) Urine pH 6.0 (5.0-8.0) Ur Specific [place] 1.015 (1.001-1.035) Urine Protein Negative (Negative) Urine Glucose (UA) Negative (Negative) Urine Ketones Negative (Negative) Urine Blood Negative (Negative) Urine Nitrite Negative (Negative) Urine Bilirubin 2+ H (Negative) Urine Urobilinogen <2.0 (<2.0) mg/dL Ur Leukocyte Esterase Small H (Negative) Urine WBC 23 H (0-5) /hpf Ur Squamous Epith Cells 3 (0-4) /hpf Urine Bacteria Moderate H (None) /hpf Urine Mucus Occasional H (None) /hpf 07/19/18 Range/Units 08:44 WBC (3.8-10.6) k/uL RBC (3.80-5.40) m/uL Hgb (11.4-16.0) gm/dL Hct (34.0-46.0) % MCV (80.0-100.0) fL MCH (25.0-35.0) pg MCHC (31.0-37.0) g/dL RDW (11.5-15.5) % Plt Count (150-450) k/uL Neutrophils % % Lymphocytes % % Monocytes % % Eosinophils % % Basophils % % Neutrophils # (1.3-7.7) k/uL Lymphocytes # (1.0-4.8) k/uL Monocytes # (0-1.0) k/uL Eosinophils # (0-0.7) k/uL Basophils # (0-0.2) k/uL Sodium (137-145) mmol/L Potassium (3.5-5.1) mmol/L Chloride (98-107) mmol/L Carbon Dioxide (22-30) mmol/L Anion Gap mmol/L BUN (7-17) mg/dL Creatinine (0.52-1.04) mg/dL Est GFR (CKD-EPI)AfAm (>60 ml/min/1.73 sqM) Est GFR (CKD-EPI)NonAf (>60 ml/min/1.73 sqM) Glucose (74-99) mg/dL Calcium (8.4-10.2) mg/dL Total Bilirubin (0.2-1.3) mg/dL AST (14-36) U/L ALT (9-52) U/L Alkaline Phosphatase (38-126) U/L Troponin I <0.012 (0.000-0.034) ng/mL Total Protein (6.3-8.2) g/dL Albumin (3.5-5.0) g/dL Amylase (30-110) U/L Lipase (23-300) U/L Urine Color Urine Appearance (Clear) Urine pH (5.0-8.0) Ur Specific [place] (1.001-1.035) Urine Protein (Negative) Urine Glucose (UA) (Negative) Urine Ketones (Negative) Urine Blood (Negative) Urine Nitrite (Negative) Urine Bilirubin (Negative) Urine Urobilinogen (<2.0) mg/dL Ur Leukocyte Esterase (Negative) Urine WBC (0-5) /hpf Ur Squamous Epith Cells (0-4) /hpf Urine Bacteria (None) /hpf Urine Mucus (None) /hpf - EKG Data EKG Comments: A 12-lead EKG was performed and shows the following: Rate is 78bpm, and rhythm is normal sinus. There are normal QRS complexes and normal R-wave progression. ST segments have no elevation or depression, and OK segments appear normal. Disposition Clinical Impression: Right upper quadrant pain, Elevated liver enzymes Disposition: HOME SELF-CARE Condition: Good Instructions (If sedation given, give patient instructions): Abdominal Pain (ED ) Additional Instructions: Please use medication as discussed. Please follow-up with gastroenterology in the next week. Please return to emergency room if the symptoms increase or worsen or for any other concerns. Is patient prescribed a controlled substance at d/c from ED?: No Referrals: Allen Moreno DO [Primary Care Provider] - 1-2 days Lauri Encinas MD [STAFF PHYSICIAN] - 1-2 days Time of Disposition: 10:45
[2018-07-19 09:04] LABS: Basophils # (A) 0.1 k/uL (0-0.2); Basophils % (A) 1 %; Eosinophils # (A) 0.5 k/uL (0-0.7); Eosinophils % (A) 7 %; HCT 40.7 % (34.0-46.0); HGB 13.1 gm/dL (11.4-16.0); Lymphocytes # (A) 2.3 k/uL (1.0-4.8); Lymphocytes % (A) 31 %; MCH 28.4 pg (25.0-35.0); MCHC 32.3 g/dL (31.0-37.0); MCV 88.2 fL (80.0-100.0); Mean Platelet Volume 6.2; Monocytes # (A) 0.3 k/uL (0-1.0); Monocytes % (A) 4 %; Neutrophils % (A) 55 %; Platelet Count 379 k/uL (150-450); RBC 4.62 m/uL (3.80-5.40); RDW 13.9 % (11.5-15.5); WBC 7.3 k/uL (3.8-10.6)
[2018-07-19 09:07] LABS: Appearance,Urine Clear (Clear); Bacteria,Urine Moderate /hpf; Bilirubin,Urine 2+ (Negative); Blood,Urine Negative (Negative); Color,Urine Yellow; Glucose,Urine (UA) Negative (Negative); Ketones,Urine Negative (Negative); Leukocyte Esterase,Urine Small (Negative); Mucus,Urine Occasional /hpf; Nitrite,Urine Negative (Negative); Protein,Urine Negative (Negative); Specific Gravity,Urine 1.015 (1.001-1.035); Squamous Epithelial Cell,Urine 3 /hpf (0-4); Urobilinogen,Urine <2.0 mg/dL (<2.0); WBC,Urine 23 /hpf (0-5)
[2018-07-19 09:16] LABS: ALT 89 U/L (9-52); AST 91 U/L (14-36); Albumin 4.5 g/dL (3.5-5.0); Alkaline Phosphatase 67 U/L (38-126); Amylase 41 U/L (30-110); Anion Gap 12 mmol/L; Blood Urea Nitrogen 17 mg/dL (7-17); Calcium 10.1 mg/dL (8.4-10.2); Carbon Dioxide 24 mmol/L (22-30); Chloride 103 mmol/L (98-107); Glucose 151 mg/dL (74-99); Lipase 113 U/L (23-300); Potassium 5.1 mmol/L (3.5-5.1); Sodium 139 mmol/L (137-145); Total Bilirubin 0.5 mg/dL (0.2-1.3); Total Protein 7.4 g/dL (6.3-8.2)
--- NOTE | 2018-07-19 09:35 | XR ---
EXAMINATION TYPE: XR chest 2V DATE OF EXAM: 07/19/2018 COMPARISON: 03/28/2017 TECHNIQUE: PA and lateral views submitted. HISTORY: Pain FINDINGS: The lungs are clear and there is no pneumothorax, pleural effusion, or focal pneumonia. Hypertrophi c and degenerative change spine. Surgical clips in the abdomen. IMPRESSION: 1. No acute process.
--- NOTE | 2018-07-19 09:36 | US ---
EXAMINATION TYPE: US abdomen limited DATE OF EXAM: 07/19/2018 COMPARISON: NONE CLINICAL HISTORY: liver, RUQ. RUQ pain x 2 days, nausea; gallbladder removed 12 years ago; hiatal her rodney EXAM MEASUREMENTS: Liver Length: 21.0 cm Gallbladder Wall: NA as gallbladder was removed CBD: 0.5 cm Right Kidney: 9.1 x 6.6 x 5.4 cm Pancreas: hyperechoic Liver: enlarged as is greater than 18.0cm; fatty liver Gallbladder: surgically absent Evidence for sonographic Segura's sign: no CBD: wnl Right Kidney: No hydronephrosis or masses seen IMPRESSION: 1. Hepatomegaly with heterogeneous pattern of liver correlate for hepatitis or diffuse hepatocellular disease versus hepatic steatosis. 2. Postcholecystectomy.
--- NOTE | 2018-07-19 10:41 | CT ---
EXAMINATION TYPE: CT abdomen pelvis w con DATE OF EXAM: 07/19/2018 COMPARISON: Left flank pain HISTORY: Left flank pain CT DLP: 1879.7 mGycm Automated exposure control for dose reduction was used. CONTRAST: CT scan of the abdomen pelvis is performed with IV Contrast, patient injected with 100 mL of Isovue 3 00. FINDINGS- LUNG BASES-subsegmental changes at the lung bases. LIVER/GB-hepatic steatosis noted. Previous cholecystectomy changes seen.. PANCREAS- No gross abnormality is seen. SPLEEN- No gross abnormality is seen. ADRENALS-indeterminate 1.5 cm left adrenal nodule.. KIDNEYS/BLADDER-no hydronephrosis. No sizable renal mass.. BOWEL- no bowel dilatation. Normal appendix. LYMPH NODES- No greater than 1cm abdominal or pelvic lymph nodes areappreciated. OSSEOUS STRUCTURES-degenerative change and facet arthropathy. OTHER- atherosclerotic change of the aorta. Calcifications in the soft tissues likely related to gra nuloma. Correlate for previous hysterectomy. IMPRESSION- 1. 1.5 cm indeterminate left adrenal nodule consider follow-up MRI. 2. Correlate for hepatic steatosis
[2018-07-19] MEDS ORDERED: MORPHINE SULFATE 2 MG/ML SYRINGE IVP STA (10:52)
[2018-07-19 11:03] VITALS: TEMP 98.6
[2018-07-19 11:45] VITALS: BP 145/70; PULSE 72; RESP 14
== END 2018-07-19 11:43 | disposition home or self-care (01) ==
LOC: EC 08:07
DX: R10.11 Right upper quadrant pain (principal); R74.0 Nonspecific elevation of levels of transaminase and lactic acid dehydrogenase [LDH]; E27.9 Disorder of adrenal gland, unspecified; M54.9 Dorsalgia, unspecified; E11.9 Type 2 diabetes mellitus without complications; K21.9 Gastro-esophageal reflux disease without esophagitis; I10 Essential (primary) hypertension; E07.9 Disorder of thyroid, unspecified; G43.909 Migraine, unspecified, not intractable, without status migrainosus; F41.9 Anxiety disorder, unspecified; Z87.891 Personal history of nicotine dependence; Z87.442 Personal history of urinary calculi; Z90.49 Acquired absence of other specified parts of digestive tract; Z95.818 Presence of other cardiac implants and grafts; Z79.890 Hormone replacement therapy; Z79.1 Long term (current) use of non-steroidal anti-inflammatories (NSAID); Z79.4 Long term (current) use of insulin; Z79.899 Other long term (current) drug therapy; Z88.8 Allergy status to other drugs, medicaments and biological substances
CPT/HCPCS: 36415; 93005; 80053; 82150; 83690; 84484; 85025; 81001; 87086; 71046; 76705; 74177; 99285; 96374; 96361; J2270; Q9967; 87077; 87186

== ENCOUNTER → 2019-01-27 | Outpatient (CLI) | payer OTHER ==
--- NOTE | 2019-01-27 17:08 | US ---
EXAMINATION TYPE: US venous doppler duplex LE LT DATE OF EXAM: 01/27/2019 4:50 PM COMPARISON: NONE CLINICAL HISTORY: R60.0 Edema. SIDE PERFORMED: Left TECHNIQUE: The lower extremity deep venous system is examined utilizing real time linear array sonog priyanka with graded compression, doppler sonography and color-flow sonography. VESSELS IMAGED: External Iliac Vein (EIV) Common Femoral Vein Deep Femoral Vein Greater Saphenous Vein * Femoral Vein Popliteal Vein Small Saphenous Vein * Proximal Calf Veins (* superficial vessels) Patient of large body habitus, technically difficult exam. Left Leg: Negative for DVT Grayscale, color doppler, spectral doppler imaging performed of the deep veins of the left lower extr emity. There is normal flow, compressibility, vascular waveforms. IMPRESSION: Suboptimal study due to body habitus per technologist's without convincing evidence of a cute DVT in the left lower extremity on images saved.
== END | disposition home or self-care (01) ==
LOC: RADUSWWP 16:28
PROVIDERS: ATTEND Family Medicine
DX: R60.0 Localized edema (principal)

== ENCOUNTER → 2019-03-19 | Outpatient (CLI) | payer OTHER ==
[2019-03-19 07:05] LABS: African American GFR (CKD) >90 (>60 ml/min/1.73 sqM); Blood Urea Nitrogen 20 mg/dL (7-17); Non-African American GFR(CKD) >90 (>60 ml/min/1.73 sqM)
--- NOTE | 2019-03-19 12:40 | CT ---
EXAMINATION TYPE: CT lower extremity LT w con DATE OF EXAM: 03/19/2019 COMPARISON: None HISTORY: Lt lower leg pain. Pain knee down CT DLP: 900.8 mGycm Automated exposure control for dose reduction was used. FINDINGS: CT of the left knee is performed in the axial plane at 3 mm thick sections. Reconstructed images are performed in sagittal plane. There is prior plate and screws within the medial proximal tibia. No acute fractures are evident. The re is soft tissue swelling in the superficial soft tissues of the knee. IMPRESSION: 1. SUPERFICIAL SOFT TISSUE SWELLING AT THE KNEE. 2. POSTSURGICAL CHANGES. 3. NO ACUTE OSSEOUS ABNORMALITY IS EVIDENT.
== END | disposition home or self-care (01) ==
LOC: RADCTMAIN 06:24
PROVIDERS: ATTEND Family Medicine
DX: M79.89 Other specified soft tissue disorders (principal); Z13.9 Encounter for screening, unspecified; Z98.890 Other specified postprocedural states
CPT/HCPCS: 82565; 84520; 73701; 36415; Q9967

== ENCOUNTER 2019-09-05 16:10 | Observation (INO) | payer OTHER ==
[2019-09-05] MEDS ORDERED: NITROGLYCERIN OINT 1 INCH/GM PACKET TOPICAL STA (17:07)
--- NOTE | 2019-09-05 17:08 | ED ---
Abdominal Pain HPI - General Chief Complaint: Abdominal Pain Stated Complaint: abd pain Time Seen by Provider: 09/05/19 16:24 Source: patient Mode of arrival: ambulatory Limitations: no limitations - History of Present Illness Initial Comments: 54-year-old female presenting today for chief complaint of epigastric pain that radiates to the back. Patient states the past 3 weeks she has had epigastric pain is worsening that radiates to the back. Patient was concerned she possibly had a ulcer. patient states sometimes it young into her chest. Denies substernal tightness. Denies vomiting, diarrhea, melena, hematochezia. Patient denies MACHUCA, fevers, cough. Patient denies shortness of breath, jaw pain or arm pain. Patient denies pain with deep inspiration, RUQ pain. History of previous cholecystectomy. Patient states she had appointment scheduled with Shameka but cancelled. Patient remaining ROS (-). - Related Data Home Medications Medication Instructions Recorded Confirmed Atenolol [Tenormin] 50 mg PO QAM 03/28/17 09/05/19 Citalopram Hydrobromide [CeleXA] 20 mg PO HS 03/28/17 09/05/19 Omeprazole 40 mg PO DAILY 03/28/17 09/05/19 Etodolac 500 mg PO BID 07/19/18 09/05/19 Pioglitazone [Actos] 30 mg PO QAM 07/19/18 09/05/19 metFORMIN HCL 1,000 mg PO BID@0900,1500 07/19/18 09/05/19 Albuterol Sulfate [Ventolin HFA] 2 puff INHALATION RT-Q4H PRN 09/05/19 09/05/19 Aspirin EC [Ecotrin Low Dose] 81 mg PO QAM 09/05/19 09/05/19 Cholecalciferol (Vitamin D3) 125 mcg PO HS 09/05/19 09/05/19 [Vitamin D3] Insulin Glargine,Hum.rec.anlog 40 units SQ HS 09/05/19 09/05/19 [Basaglar Kwikpen U-100] Levothyroxine Sodium [Synthroid] 150 mcg PO QAM 09/05/19 09/05/19 Allergies Allergy/AdvReac Type Severity Reaction Status Date / Time bupropion [From Wellbutrin] Allergy Dyspnea/Hea Verified 09/05/19 19:42 daches/Hive s Review of Systems ROS Statement: Those systems with pertinent positive or pertinent negative responses have been documented in the HPI. ROS Other: All systems not noted in ROS Statement are negative. Past Medical History Past Medical History: Asthma, Diabetes Mellitus, GERD/Reflux, Hypertension, Thyroid Disorder Additional Past Medical History / Comment(s): HIATAL HERNIA,MIGRAINES, .GRAVES DISEASE-"HAD HER THYROID RADIOACTIVELY DISSOLVED", ANXIETY, KIDNEY STONES, START OF CATARACTS. History of Any Multi-Drug Resistant Organisms: None Reported Past Surgical History: Cholecystectomy, Orthopedic Surgery, Tonsillectomy Additional Past Surgical History / Comment(s): LITHOTRIPSY, LAPROSCOPIC SX, LT MEDIAL/LAT TIB SX D/T INJURY, THYROID RADIOACTIVEY DISSOLVED. Past Anesthesia/Blood Transfusion Reactions: No Reported Reaction Past Psychological History: Anxiety Smoking Status: Former smoker Past Alcohol Use History: Occasional Past Drug Use History: None Reported - Past Family History Father Family Medical History: Dementia, Diabetes Mellitus Mother Family Medical History: Diabetes Mellitus, Thyroid Disorder Additional Family Medical History / Comment(s): GRAVES DISEASE,HERNIA,DJD-LT KNEE REPLACMENT. INTESTINAL ABCESS-HAD COLOSTOMY-SINCE REVERSED AND BLADDER SX. General Exam - General Exam Comments Initial Comments: General: The patient is awake and alert, in no distress Eye: +3 mm pupils are equal, round and reactive to light, extra-ocular movements are intact. No nystagmus. There is normal conjunctiva bilaterally. No signs of icterus. Ears, nose, mouth and throat: There are moist mucous membranes and no oral lesions. Neck: The neck is supple, there is no tenderness or JVD. Cardiovascular: There is a regular rate and rhythm. No murmur, rub or gallop is appreciated. Respiratory: Lungs are clear to auscultation, respirations are non-labored, breath sounds are equal. No wheezes, stridor, rales, or rhonchi. Gastrointestinal: Soft, non-distended, mild tenderness to palpation of the epigastric region,remaining abdomen nontender and is without masses or organomegaly noted. There is no rebound or guarding present. No blood on ISABELLE, or dark stool. Musculoskeletal: Normal ROM, no tenderness. Strength 5/5. Sensation intact. Radial pulses equal bilaterally 2+. Neurological: A&O x 3. CN II-XII intact grossly, There are no obvious motor or sensory deficits. Coordination appears grossly intact. Speech is normal. Skin: Skin is warm and dry and no rashes or lesions are noted. Psychiatric: Cooperative, appropriate mood & affect, normal judgment. Limitations: no limitations Course Vital Signs 09/05/19 09/05/19 09/05/19 16:14 18:42 19:30 Temperature 98.3 F 98.5 F Pulse Rate 78 79 77 Respiratory 18 16 16 Rate Blood Pressure 135/66 133/78 126/78 O2 Sat by Pulse 99 94 L 98 Oximetry Medical Decision Making - Medical Decision Making 54yo female presenting for epigastric pain. History GERD. Radiates to back with nausea. troponin (-). Ekg no acute findings. NO ripping tearing sensation, mostly burning. Patient concerned of ulcer. Pt anemic at 9.0HgB significantly lower than most recent previous (1 year ago) with no recent values hard to r/o acute bleed, from possible peptic ulcer. Patient occult (-). Patient US (-) for pancreatic abnormalities, bilirubin WNL. Patient has no pain to the RUQ pain. Previous cholecystectomy. At this time discussing placement and provider one week. Most controlled admission for possible endoscopy for suspected upper GI bleed. We'll trend troponins. Although we feel atypical presentation for [place] is unlikely at this time. - Lab Data Result diagrams: 09/05/19 17:11 09/05/19 17:11 Lab Results 09/05/19 09/05/19 09/05/19 Range/Units 17:11 17:11 17:11 WBC 9.0 (3.8-10.6) k/uL RBC 3.87 (3.80-5.40) m/uL Hgb 9.1 L (11.4-16.0) gm/dL Hct 29.5 L (34.0-46.0) % MCV 76.2 L (80.0-100.0) fL MCH 23.5 L (25.0-35.0) pg MCHC 30.8 L (31.0-37.0) g/dL RDW 15.9 H (11.5-15.5) % Plt Count 347 (150-450) k/uL Neutrophils % 62 % Lymphocytes % 28 % Monocytes % 4 % Eosinophils % 4 % Basophils % 1 % Neutrophils # 5.6 (1.3-7.7) k/uL Lymphocytes # 2.5 (1.0-4.8) k/uL Monocytes # 0.4 (0-1.0) k/uL Eosinophils # 0.3 (0-0.7) k/uL Basophils # 0.0 (0-0.2) k/uL Hypochromasia Marked Microcytosis Slight Sodium 134 L (137-145) mmol/L Potassium 4.4 (3.5-5.1) mmol/L Chloride 97 L (98-107) mmol/L Carbon Dioxide 28 (22-30) mmol/L Anion Gap 9 mmol/L BUN 14 (7-17) mg/dL Creatinine 0.56 (0.52-1.04) mg/dL Est GFR (CKD-EPI)AfAm >90 (>60 ml/min/1.73 sqM) Est GFR (CKD-EPI)NonAf >90 (>60 ml/min/1.73 sqM) Glucose 152 H (74-99) mg/dL Calcium 10.0 (8.4-10.2) mg/dL Total Bilirubin 0.3 (0.2-1.3) mg/dL AST 104 H (14-36) U/L ALT 96 H (4-34) U/L Alkaline Phosphatase 80 (38-126) U/L Troponin I (0.000-0.034) ng/mL Total Protein 7.3 (6.3-8.2) g/dL Albumin 4.3 (3.5-5.0) g/dL Amylase 36 (30-110) U/L Lipase 55 (23-300) U/L Urine Color Light Yellow Urine Appearance Clear (Clear) Urine pH 6.0 (5.0-8.0) Ur Specific Luna 1.008 (1.001-1.035) Urine Protein Negative (Negative) Urine Glucose (UA) Negative (Negative) Urine Ketones Negative (Negative) Urine Blood Negative (Negative) Urine Nitrite Negative (Negative) Urine Bilirubin 1+ H (Negative) Urine Urobilinogen <2.0 (<2.0) mg/dL Ur Leukocyte Esterase Small H (Negative) Urine RBC <1 (0-5) /hpf Urine WBC 12 H (0-5) /hpf Ur Squamous Epith Cells <1 (0-4) /hpf Urine Bacteria Rare H (None) /hpf Urine Mucus Rare H (None) /hpf Stool Occult Blood (Negative) 09/05/19 09/05/19 Range/Units 17:11 19:00 WBC (3.8-10.6) k/uL RBC (3.80-5.40) m/uL Hgb (11.4-16.0) gm/dL Hct (34.0-46.0) % MCV (80.0-100.0) fL MCH (25.0-35.0) pg MCHC (31.0-37.0) g/dL RDW (11.5-15.5) % Plt Count (150-450) k/uL Neutrophils % % Lymphocytes % % Monocytes % % Eosinophils % % Basophils % % Neutrophils # (1.3-7.7) k/uL Lymphocytes # (1.0-4.8) k/uL Monocytes # (0-1.0) k/uL Eosinophils # (0-0.7) k/uL Basophils # (0-0.2) k/uL Hypochromasia Microcytosis Sodium (137-145) mmol/L Potassium (3.5-5.1) mmol/L Chloride (98-107) mmol/L Carbon Dioxide (22-30) mmol/L Anion Gap mmol/L BUN (7-17) mg/dL Creatinine (0.52-1.04) mg/dL Est GFR (CKD-EPI)AfAm (>60 ml/min/1.73 sqM) Est GFR (CKD-EPI)NonAf (>60 ml/min/1.73 sqM) Glucose (74-99) mg/dL Calcium (8.4-10.2) mg/dL Total Bilirubin (0.2-1.3) mg/dL AST (14-36) U/L ALT (4-34) U/L Alkaline Phosphatase (38-126) U/L Troponin I <0.012 (0.000-0.034) ng/mL Total Protein (6.3-8.2) g/dL Albumin (3.5-5.0) g/dL Amylase (30-110) U/L Lipase (23-300) U/L Urine Color Urine Appearance (Clear) Urine pH (5.0-8.0) Ur Specific Luna (1.001-1.035) Urine Protein (Negative) Urine Glucose (UA) (Negative) Urine Ketones (Negative) Urine Blood (Negative) Urine Nitrite (Negative) Urine Bilirubin (Negative) Urine Urobilinogen (<2.0) mg/dL Ur Leukocyte Esterase (Negative) Urine RBC (0-5) /hpf Urine WBC (0-5) /hpf Ur Squamous Epith Cells (0-4) /hpf Urine Bacteria (None) /hpf Urine Mucus (None) /hpf Stool Occult Blood Negative (Negative) Disposition Clinical Impression: Epigastric pain, Nausea, Anemia, Hepatic steatosis Disposition: ADMITTED IP TO THIS [facility] Condition: Stable Is patient prescribed a controlled substance at d/c from ED?: No Referrals: Allen Moreno DO [Primary Care Provider] - 1-2 days Time of Disposition: 19:15 Decision to Admit Reason: Admit from EC Decision Date: 09/05/19 Decision Time: 19:15
[2019-09-05 17:24] LABS: Basophils % (A) 1 %; Eosinophils # (A) 0.3 k/uL (0-0.7); Eosinophils % (A) 4 %; HCT 29.5 % (34.0-46.0); HGB 9.1 gm/dL (11.4-16.0); Hypochromasia Marked; Lymphocytes # (A) 2.5 k/uL (1.0-4.8); Lymphocytes % (A) 28 %; MCH 23.5 pg (25.0-35.0); MCHC 30.8 g/dL (31.0-37.0); MCV 76.2 fL (80.0-100.0); Mean Platelet Volume 7.6; Microcytosis Slight; Monocytes # (A) 0.4 k/uL (0-1.0); Monocytes % (A) 4 %; Neutrophils # (A) 5.6 k/uL (1.3-7.7); Neutrophils % (A) 62 %; Platelet Count 347 k/uL (150-450); RBC 3.87 m/uL (3.80-5.40); RDW 15.9 % (11.5-15.5)
[2019-09-05 17:26] LABS: Appearance,Urine Clear (Clear); Bacteria,Urine Rare /hpf; Bilirubin,Urine 1+ (Negative); Blood,Urine Negative (Negative); Color,Urine Light Yellow; Glucose,Urine (UA) Negative (Negative); Ketones,Urine Negative (Negative); Leukocyte Esterase,Urine Small (Negative); Mucus,Urine Rare /hpf; Nitrite,Urine Negative (Negative); Protein,Urine Negative (Negative); RBC,Urine <1 /hpf (0-5); Specific Gravity,Urine 1.008 (1.001-1.035); Squamous Epithelial Cell,Urine <1 /hpf (0-4); Urobilinogen,Urine <2.0 mg/dL (<2.0); WBC,Urine 12 /hpf (0-5)
--- NOTE | 2019-09-05 17:31 | XR ---
EXAMINATION TYPE: XR chest 2V DATE OF EXAM: 09/05/2019 COMPARISON: 07/19/2018 HISTORY: 54 year-old female nausea and chest discomfort TECHNIQUE: PA and lateral views FINDINGS: Heart is upper limits of normal in size. Mild interstitial prominence is unchanged. No consolidation or pleural effusion. IMPRESSION: Chronic changes and borderline heart size. No acute cardiopulmonary process.
[2019-09-05 17:36] LABS: ALT 96 U/L (4-34); AST 104 U/L (14-36); African American GFR (CKD) >90 (>60 ml/min/1.73 sqM); Albumin 4.3 g/dL (3.5-5.0); Alkaline Phosphatase 80 U/L (38-126); Amylase 36 U/L (30-110); Anion Gap 9 mmol/L; Blood Urea Nitrogen 14 mg/dL (7-17); Carbon Dioxide 28 mmol/L (22-30); Chloride 97 mmol/L (98-107); Glucose 152 mg/dL (74-99); Non-African American GFR(CKD) >90 (>60 ml/min/1.73 sqM); Potassium 4.4 mmol/L (3.5-5.1); Sodium 134 mmol/L (137-145); Total Bilirubin 0.3 mg/dL (0.2-1.3); Total Protein 7.3 g/dL (6.3-8.2)
--- NOTE | 2019-09-05 18:29 | US ---
EXAMINATION TYPE: US abdomen limited DATE OF EXAM: 09/05/2019 COMPARISON: None CLINICAL HISTORY: 54-year-old female epigastric pain. GB removed 2006 TECHNIQUE: Multiple sonographic images of the right upper quadrant are obtained. FINDINGS: EXAM MEASUREMENTS: Liver Length: 20.8 cm CBD: 0.8 cm Right Kidney: 10.7 x 5.0 x 5.1 cm Pancreas: No gross abnormality. Liver: Enlarged, echogenic, indicating attenuation. The secondary limits assessment for focal lesion. Gallbladder: Surgically absent Evidence for sonographic Segura's sign: neg CBD: Mildly dilated but acceptable given postcholecystectomy status. Right Kidney: No hydronephrosis. IMPRESSION: 1. Hepatomegaly (20.8 cm) with moderate to severe hepatic steatosis. 2. Mild dilatation of the bile duct at 8 mm, within acceptable limits given postcholecystectomy statu s. Correlate with alkaline phosphatase and bilirubin levels.
[2019-09-05 18:43] VITALS: RESP 16
[2019-09-05] MEDS ORDERED: ONDANSETRON 4 MG/2 ML VIAL IVP STA (18:43)
[2019-09-05] MEDS ORDERED: PANTOPRAZOLE 40 MG/10 ML VIAL IVP STA (18:56)
[2019-09-05] MEDS ORDERED: ONDANSETRON 4 MG/2 ML VIAL IVP PRN (19:15)
[2019-09-05] MEDS ORDERED: MORPHINE SULFATE 4 MG/ML SYRINGE IV PRN (19:15)
[2019-09-05] MEDS ORDERED: NALOXONE 0.4 MG/ML 1 ML VIAL IV PRN (19:15)
[2019-09-05] MEDS: SODIUM CHLORIDE 0.9% 1,000 ML IV SCH (19:29)
[2019-09-05 22:18] LABS: Glucose,Whole Blood 134 mg/dL (75-99)
[2019-09-05] MEDS ORDERED: ALBUTEROL NEBULIZED 2.5 MG/3 ML INHALATION PRN (22:19)
[2019-09-05] MEDS: CITALOPRAM HYDROBROMIDE 20 MG TAB PO SCH (22:37)
[2019-09-05] MEDS ORDERED: INSULIN DETEMIR (LEVEMIR) 100 UNIT/ML SYR SQ SCH (22:45)
[2019-09-06] MEDS: SODIUM CHLORIDE 0.9% 1,000 ML IV SCH ×2 (04:37→16:47)
[2019-09-06] MEDS: LEVOTHYROXINE 75 MCG TAB PO SCH (05:33)
[2019-09-06] MEDS ORDERED: LEVOTHYROXINE 75 MCG TAB PO SCH (06:30)
[2019-09-06 07:04] LABS: Glucose,Whole Blood 157 mg/dL (75-99)
[2019-09-06] MEDS ORDERED: PIOGLITAZONE 30 MG TAB PO SCH (09:00)
[2019-09-06] MEDS ORDERED: ETODOLAC 300 MG CAPSULE PO SCH (09:00)
[2019-09-06] MEDS: metFORMIN 500 MG TAB PO SCH ×2 (09:52→16:41)
[2019-09-06] MEDS: ATENOLOL 50 MG TAB PO SCH (09:52)
[2019-09-06] MEDS: PANTOPRAZOLE 40 MG TABLET PO SCH (09:52)
[2019-09-06] MEDS: ETODOLAC 200 MG CAPSULE PO SCH ×2 (10:08→20:34)
[2019-09-06 12:19] LABS: Glucose,Whole Blood 168 mg/dL (75-99)
--- NOTE | 2019-09-06 14:23 | CONS ---
CONSULTATION DATE OF SERVICE: 09/06/2019. REASON FOR CONSULTATION: Epigastric pain and microcytic hypochromic anemia. HISTORY OF PRESENT ILLNESS: Patient is a 54-year-old pleasant white female who came into the emergency room yesterday complaining of severe epigastric and periumbilical abdominal pain that started yesterday morning. She has been having intermittent episodes of periumbilical and epigastric abdominal pain for the last one month duration. Had some nausea but no emesis. Denies any rectal bleeding or melena. No fever, chills, night sweats. Never had these symptoms in the past. No prior history of peptic ulcer disease. Remote history of cholecystectomy for symptomatic gallstones. When she came to the emergency room, she was noted to have anemia with a hemoglobin of 9 and decreased sensitivity consistent with iron deficiency anemia. She was scheduled for an outpatient EGD colonoscopy on August 25, but was canceled because of ongoing issues. Since being in the hospital, she is feeling better. She denies any recent NSAID use. PAST MEDICAL HISTORY: Significant for diabetes mellitus, hypertension, hypothyroidism, gastroesophageal reflux disease. MEDICATIONS: At home include aspirin, vitamin D, insulin, Synthroid, albuterol, metformin, Actos, omeprazole, Celexa and atenolol. ALLERGIES: WELLBUTRIN. SOCIAL HISTORY: No smoking. No alcohol use. PAST SURGICAL HISTORY: Cholecystectomy, tonsillectomy, lithotripsy, left knee surgery. FAMILY HISTORY: Father with diabetes mellitus and dementia. Mother, hypothyroidism and diabetes mellitus. PHYSICAL EXAMINATION: She appears comfortable, in no apparent distress. Vital signs are stable. Blood pressure 133/82, pulse rate 92, temperature 97. HEENT: Examination unremarkable, conjunctivae are pale, sclerae nonicteric. Oral cavity no lesions. NECK No JVD or lymph node enlargement. CHEST: Clear to auscultation. HEART: Regular rate and rhythm. ABDOMEN: Soft. Bowel sounds are positive. No organomegaly. Mild tenderness in the epigastric and periumbilical area. The rest of the abdomen was benign, it was obese. EXTREMITIES: No pedal edema. SKIN: No rashes. NEUROLOGIC: Alert and oriented x3. No focal deficits. LABS: WBC 9, hemoglobin 9.1, platelets 347, MCV 76. BUN and creatinine are within normal limits. AST is 104, ALT is 96. Rest of the labs are within normal limits. Ultrasound of the abdomen showed dilated CBD at 8 mm and moderate to severe hepatic steatosis. IMPRESSION: 1. The patient presented to the hospital with epigastric pain and periumbilical abdominal pain on and off for the last 1-2 months duration which got much worse yesterday morning, associated with some nausea but no emesis. Rule out possibility of peptic ulcer disease. 2. Microcytic hypochromic anemia consistent with iron-deficiency anemia. Clinically, no evidence of active bleeding and stool occult blood was negative. RECOMMENDATIONS: 1. Continue with Protonix 40 mg daily. 2. Clear liquid diet. 3. We will proceed with EGD, colonoscopy tomorrow. I discussed with them the risks, benefits, and complications of procedure and she is agreeable to it. Thank you for this consultation. CARMEN / IJN: [id number] /
[2019-09-06] MEDS ORDERED: PEG 3350-NA SULF,BICARB,CL/KCL 4,000 ML BOTTLE PO ONE (16:00)
[2019-09-06 17:34] LABS: Glucose,Whole Blood 149 mg/dL (75-99)
--- NOTE | 2019-09-06 18:03 | P.HPIM ---
History of Present Illness H&P Date: 09/06/19 Chief Complaint: Epigastric pain History of presenting complaint: This is a [address] Moreno. Chronic stable medical conditions include asthma, diabetes, GERD, hypertension, hypothyroid, anxiety, kidney stones. Patient's had epigastric pain on and off for about at least 2 months. Has become most steady in the last 2 days. Getting worse. Pain is worse with eating. Worse with lying down. No change in bowel habits. No fever no chills. No cardiac pain. No chest pain. Denies any black tools. Review of systems: GEN.: None EYES: None HEENT: None NECK: None RESPIRATORY: None CARDIOVASCULAR: None GASTROINTESTINAL: As above GENITOURINARY: None MUSCULOSKELETAL: None LYMPHATICS: None HEMATOLOGICAL: None PSYCHIATRY: None NEUROLOGICAL: None Past medical history to include: Asthma, diabetes, GERD, hypertension, hypothyroid, hiatal hernia, migraines, Graves' disease that was treated radioactively, anxiety, kidney stones early cataracts, anxiety Social history: Smoked a pack and a 23 years stopped in 2013. Lives with a boyfriend. Works as a customer service. Occasional alcohol. Physical examination: VITAL SIGNS: 98.3, 78, 18, 135/66, 99% on room air GENERAL: BMI 45.3, sitting up in a chair, awake in distress. EYES: Pupils equal. Conjunctiva normal. HEENT: External appearance of nose and ears normal, oral cavity grossly normal. NECK: JVD not raised; masses not palpable. HEART: First and second heart sounds are normal; no edema. LUNGS: Respiratory rate normal; clear to auscultation. ABDOMEN: Soft, epigastric tenderness, no guarding or rigidity, liver spleen not palpable, no masses palpable. PSYCH: Alert and oriented x3; mood and affect normal. NEUROLOGICAL: Cranial nerves grossly intact; no facial asymmetry, power and sensation grossly intact. LYMPHATICS: No lymph nodes palpable in the axilla and neck INVESTIGATIONS, reviewed in the clinical context: White count 9 hemoglobin 9.1 MCV 76.2 platelets 347 pressure 4.4 creatinine 0.56 AST 104 ALT 96 Stool occult blood negative EKG tracing personally reviewed by me-bowel sinus rhythm Chest x-ray film personally reviewed by me-possibly chronic changes Abdominal ultrasound-liver enlarged echogenic-hepatic steatosis Assessment: -Patient presents with over 2 months of epigastric pain progressively getting worse. Pain is much worse with food. And laying down. Very suggestive of gastric ulcer. In the setting of possibly slow bleed causing microcytic anemia. Not that patient is on etodolac and aspirin -Microcytic anemia percent from GI bleed. We'll check iron studies -Morbid obesity BMI 45.3 -Nonalcoholic fatty liver disease -Diabetes mellitus type 2, chronically on insulin -GERD -Essential hypertension -Hypothyroid -Hiatal hernia Plan: Patient be put on PPIs. Discontinue etodolac and aspirin. Other medications to continue. Patient be seen by GI for endoscopy. Accu-Cheks to be followed. Care was discussed with the patient question answered. - Past Medical History Past Medical History: Asthma, Diabetes Mellitus, GERD/Reflux, Hypertension, Thyroid Disorder Additional Past Medical History / Comment(s): HIATAL HERNIA,MIGRAINES, .GRAVES DISEASE-"HAD HER THYROID RADIOACTIVELY DISSOLVED", ANXIETY, KIDNEY STONES, START OF CATARACTS. History of Any Multi-Drug Resistant Organisms: None Reported Past Surgical History: Cholecystectomy, Orthopedic Surgery, Tonsillectomy Additional Past Surgical History / Comment(s): LITHOTRIPSY, LAPROSCOPIC SX, LT MEDIAL/LAT TIB SX D/T INJURY, THYROID RADIOACTIVEY DISSOLVED. Past Anesthesia/Blood Transfusion Reactions: No Reported Reaction Past Psychological History: Anxiety Smoking Status: Former smoker Past Alcohol Use History: Occasional Additional Past Alcohol Use History / Comment(s): STARTED SMOKING AT AGE 23 AND QUIT 2013, WAS SMOKING 1 PPD. Occasional alcohol drinker. Past Drug Use History: None Reported - Past Family History Father Family Medical History: Dementia, Diabetes Mellitus Mother Family Medical History: Diabetes Mellitus, Thyroid Disorder Additional Family Medical History / Comment(s): GRAVES DISEASE,HERNIA,DJD-LT KNEE REPLACMENT. INTESTINAL ABCESS-HAD COLOSTOMY-SINCE REVERSED AND BLADDER SX. Medications and Allergies Home Medications Medication Instructions Recorded Confirmed Type Atenolol [Tenormin] 50 mg PO QAM 03/28/17 09/05/19 History Citalopram Hydrobromide [CeleXA] 20 mg PO HS 03/28/17 09/05/19 History Omeprazole 40 mg PO DAILY 03/28/17 09/05/19 History Etodolac 500 mg PO BID 07/19/18 09/05/19 History Pioglitazone [Actos] 30 mg PO QAM 07/19/18 09/05/19 History metFORMIN HCL 1,000 mg PO BID@0900,1500 07/19/18 09/05/19 History Albuterol Sulfate [Ventolin HFA] 2 puff INHALATION RT-Q4H PRN 09/05/19 09/05/19 History Aspirin EC [Ecotrin Low Dose] 81 mg PO QAM 09/05/19 09/05/19 History Cholecalciferol (Vitamin D3) 125 mcg PO HS 09/05/19 09/05/19 History [Vitamin D3] Insulin Glargine,Hum.rec.anlog 40 units SQ HS 09/05/19 09/05/19 History [Basaglar Kwikpen U-100] Levothyroxine Sodium [Synthroid] 150 mcg PO QAM 09/05/19 09/05/19 History Allergies Allergy/AdvReac Type Severity Reaction Status Date / Time bupropion [From Wellbutrin] Allergy Dyspnea/Hea Verified 09/05/19 19:42 daches/Hive s Physical Exam Vitals: Vital Signs Temp Pulse Pulse Resp BP BP Pulse Ox 09/06/19 06:08 97.7 F 86 16 117/67 92 L 09/05/19 22:34 97.3 F L 81 16 120/70 98 09/05/19 19:30 98.5 F 77 16 126/78 98 09/05/19 18:42 79 16 133/78 94 L 09/05/19 16:14 98.3 F 78 18 135/66 99 Intake and Output 09/05/19 09/06/19 09/06/19 22:59 06:59 14:59 Intake Total 600 Balance 600 Intake: Intake, IV Titration 600 Amount Sodium Chloride 0.9% 1, 600 000 ml @ 100 mls/hr IV . Q10H [facility] Rx#:[id number] Other: Voiding Method Toilet # Voids 1 2 2 Weight 108.862 kg Results CBC & Chem 7: 09/05/19 17:11 09/05/19 17:11 Labs: Abnormal Lab Results - Last 24 Hours (Table) 09/05/19 09/05/19 09/05/19 Range/Units 17:11 17:11 17:11 Hgb 9.1 L (11.4-16.0) gm/dL Hct 29.5 L (34.0-46.0) % MCV 76.2 L (80.0-100.0) fL MCH 23.5 L (25.0-35.0) pg MCHC 30.8 L (31.0-37.0) g/dL RDW 15.9 H (11.5-15.5) % Sodium 134 L (137-145) mmol/L Chloride 97 L (98-107) mmol/L Glucose 152 H (74-99) mg/dL POC Glucose (mg/dL) (75-99) mg/dL AST 104 H (14-36) U/L ALT 96 H (4-34) U/L Urine Bilirubin 1+ H (Negative) Ur Leukocyte Esterase Small H (Negative) Urine WBC 12 H (0-5) /hpf Urine Bacteria Rare H (None) /hpf Urine Mucus Rare H (None) /hpf 09/05/19 09/06/19 Range/Units 22:09 07:03 Hgb (11.4-16.0) gm/dL Hct (34.0-46.0) % MCV (80.0-100.0) fL MCH (25.0-35.0) pg MCHC (31.0-37.0) g/dL RDW (11.5-15.5) % Sodium (137-145) mmol/L Chloride (98-107) mmol/L Glucose (74-99) mg/dL POC Glucose (mg/dL) 134 H 157 H (75-99) mg/dL AST (14-36) U/L ALT (4-34) U/L Urine Bilirubin (Negative) Ur Leukocyte Esterase (Negative) Urine WBC (0-5) /hpf Urine Bacteria (None) /hpf Urine Mucus (None) /hpf Microbiology - Last 24 Hours (Table) 09/05/19 17:11 Urine Culture - Preliminary Urine,Voided Thrombosis Risk Factor Assmnt - Choose All That Apply Any of the Below Risk Factors Present?: Yes Each Factor Represents 1 point: Age 41-60 years Other Risk Factors: No Thrombosis Risk Factor Assessment Total Risk Factor Score: 1 Thrombosis Risk Factor Assessment Level: Low Risk
[2019-09-06 20:16] LABS: Glucose,Whole Blood 128 mg/dL (75-99)
[2019-09-06] MEDS: CITALOPRAM HYDROBROMIDE 20 MG TAB PO SCH (20:32)
[2019-09-06] MEDS ORDERED: CHOLECALCIFEROL 1,000 UNIT TAB PO SCH (21:00)
[2019-09-06] MEDS ORDERED: INSULIN DETEMIR (LEVEMIR) 100 UNIT/ML SYR SQ SCH (21:00)
[2019-09-07] MEDS: SODIUM CHLORIDE 0.9% 1,000 ML IV SCH ×2 (05:06→09:19)
[2019-09-07] MEDS: LEVOTHYROXINE 75 MCG TAB PO SCH (05:56)
[2019-09-07 07:09] LABS: Glucose,Whole Blood 158 mg/dL (75-99)
[2019-09-07] MEDS ORDERED: LIDOCAINE 1% INJ 10MG/ML (20 ML MDV) ONE (08:00)
[2019-09-07] MEDS ORDERED: PROPOFOL 10 MG/ML 20 ML VIAL IV ONE (08:00)
[2019-09-07] MEDS ORDERED: IV FLUID CONTINUATION 1,000 ML IV ONE (08:02)
--- NOTE | 2019-09-07 08:23 | P.PCN ---
Date of Procedure: 09/07/19 Procedure(s) Performed: Brief history: Patient is a pleasant 54-year-old white female admitted hospital with severe epigastric and periumbilical abdominal pain on and off for the last 1 month duration. She was noted to have a microcytic anemia with a hemoglobin of 9 g/dL with iron deficiency and hence is scheduled for an upper endoscopy as well as colonoscopy to evaluate further. Procedure performed: Esophagogastroduodenoscopy with biopsy Colonoscopy Preoperative diagnosis: Microcytic/Chronic anemia Anesthesia: MAC Procedure: After informed consent was obtained from the patient was brought into the endoscopy unit and IV sedation was administered by anesthesia under continuous monitoring. Initially upper endoscopy was done. The Olympus GF 160 video endoscope was inserted inserted into the mouth and esophagus intubated without any difficulty and was gradually advanced into the stomach and duodenum and carefully examined. The bulb and second part of the duodenum appeared normal. The scope was then withdrawn into the stomach adequately insufflated with air. There was a 2 cm ulceration noted in the prepyloric area extending into the pyloric channel with no active bleeding. Biopsies were done from the margin of the ulcer. Mucosa of the the antrum and body, cardia and fundus appeared normal. The scope was then withdrawn into the esophagus. The GE junction was located at 40 cm to the incisors. It appeared regular with no erythema erosions or ulcerations. Rest of the esophagus appeared normal. Patient tolerated the procedure well. At this time the patient continued to remain sedation. Initial digital rectal examination was normal. Olympus CF 160 video colonoscope was then inserted into the rectum and gradually advanced to the cecum without any difficulty. Careful examination was performed as the scope was gradually being withdrawn. The prep was excellent. The cecum, ascending colon, transverse colon, descending colon, sigmoid colon and rectum appeared normal. Retroflexion was performed in the rectum and no lesions were noted. Patient tolerated the procedure well. Impression: 1. Upper endoscopy revealed 2 cm circumferential ulceration in the prepyloric area extending into the pyloric channel with no active bleeding 2. Colonoscopy was within normal limits with no evidence of colorectal neoplasia Recommendations: Findings of this examination were discussed with the patient . She'll be started on regular diet. Continue on Protonix 40 mg twice daily. Avoid NSAIDs She can be discharged home with outpatient follow-up in 2-3 weeks.
[2019-09-07] MEDS: ATENOLOL 50 MG TAB PO SCH (09:14)
[2019-09-07] MEDS: PANTOPRAZOLE 40 MG TABLET PO SCH (09:14)
[2019-09-07] MEDS: ETODOLAC 200 MG CAPSULE PO SCH (09:14)
[2019-09-07] MEDS: INSULIN ASPART (NovoLOG) 100 UNIT/ML VIAL SQ SCH ×2 (09:14→11:45)
[2019-09-07 11:33] VITALS: BP 145/73; PULSE 63; TEMP 97.7
[2019-09-07 11:42] LABS: Glucose,Whole Blood 163 mg/dL (75-99)
--- NOTE | 2019-09-07 18:09 | P.DS ---
Providers Date of admission: 09/05/19 20:05 Expected date of discharge: 09/07/19 Attending physician: Duran Caraballo Consults: 09/06/19 09:05 Consult Physician Routine Consulting Provider: Lauri Encinas Consult Reason/Comments: Epigastric pain Elevated AST and ALT Do you want consulting provider notified?: Yes Primary care physician: Allen Moreno [facility] Course: Chief Complaint: Epigastric pain History of presenting complaint: This is a [address] Moreno. Chronic stable medical conditions include asthma, diabetes, GERD, hypertension, hypothyroid, anxiety, kidney stones. Patient's had epigastric pain on and off for about at least 2 months. Has become most steady in the last 2 days. Getting worse. Pain is worse with eating. Worse with lying down. No change in bowel habits. No fever no chills. No cardiac pain. No chest pain. Denies any black tools. Today-EGD confirmed prepyloric gastric ulcer. Patient advised against use of NSAIDs. Does a PPI increased. Patient tolerating a diet. Consultation: Dr. Rowdy Gould from GI Physical examination: VITAL SIGNS: 97.7, 63, 16, 145/73, 96% on room air GENERAL: BMI 45.3, sitting up in a chair, eating EYES: Pupils equal. Conjunctiva normal. HEENT: External appearance of nose and ears normal, oral cavity grossly normal. NECK: JVD not raised; masses not palpable. HEART: First and second heart sounds are normal; no edema. LUNGS: Respiratory rate normal; clear to auscultation. ABDOMEN: Soft, decreased epigastric tenderness, no guarding or rigidity, liver spleen not palpable, no masses palpable. PSYCH: Alert and oriented x3; mood and affect normal. INVESTIGATIONS, reviewed in the clinical context: White count 9 hemoglobin 9.1 MCV 76.2 platelets 347 pressure 4.4 creatinine 0.56 AST 104 ALT 96 Stool occult blood negative EKG tracing personally reviewed by me-bowel sinus rhythm Chest x-ray film personally reviewed by me-possibly chronic changes Abdominal ultrasound-liver enlarged echogenic-hepatic steatosis EGD-prepyloric ulcer gastric Assessment: -Acute abdominal pain on chronic abdominal pain from prepyloric gastric ulcer secondary to NSAIDs -Microcytic anemia percent from GI bleed. We'll check iron studies -Morbid obesity BMI 45.3 -Nonalcoholic fatty liver disease -Diabetes mellitus type 2, chronically on insulin -GERD -Essential hypertension -Hypothyroid -Hiatal hernia Disposition: Home - Patient Condition at Discharge: Stable Plan - Discharge Summary Discharge Rx Participant: No New Discharge Prescriptions: New Pantoprazole [Protonix] 40 mg PO BID #60 tablet.dr Garland Citalopram Hydrobromide [CeleXA] 20 mg PO HS Atenolol [Tenormin] 50 mg PO QAM Pioglitazone [Actos] 30 mg PO QAM metFORMIN HCL 1,000 mg PO BID@0900,1500 Levothyroxine Sodium [Synthroid] 150 mcg PO QAM Insulin Glargine,Hum.rec.anlog [Basaglar Kwikpen U-100] 40 units SQ HS Cholecalciferol (Vitamin D3) [Vitamin D3] 125 mcg PO HS Albuterol Sulfate [Ventolin HFA] 2 puff INHALATION RT-Q4H PRN PRN Reason: Shortness Of Breath Discontinued Omeprazole 40 mg PO DAILY Etodolac 500 mg PO BID Aspirin EC [Ecotrin Low Dose] 81 mg PO QAM Discharge Medication List Atenolol [Tenormin] 50 mg PO QAM 03/28/17 [History] Citalopram Hydrobromide [CeleXA] 20 mg PO HS 03/28/17 [History] Pioglitazone [Actos] 30 mg PO QAM 07/19/18 [History] metFORMIN HCL 1,000 mg PO BID@0900,1500 07/19/18 [History] Albuterol Sulfate [Ventolin HFA] 2 puff INHALATION RT-Q4H PRN 09/05/19 [History] Cholecalciferol (Vitamin D3) [Vitamin D3] 125 mcg PO HS 09/05/19 [History] Insulin Glargine,Hum.rec.anlog [Basaglar Kwikpen U-100] 40 units SQ HS 09/05/19 [History] Levothyroxine Sodium [Synthroid] 150 mcg PO QAM 09/05/19 [History] Pantoprazole [Protonix] 40 mg PO BID #60 tablet. 09/07/19 [Rx] Follow up Appointment(s)/Referral(s): Carmencita Gould MD [STAFF PHYSICIAN] - 2 Weeks (call sunday to make appts.office closed at time of discharged) Josh,Allen, DO [Primary Care Provider] - 1-2 days (call sunday to make appts.office closed at time of discharged) Patient Instructions/Handouts: Pantoprazole (By mouth) Activity/Diet/Wound Care/Special Instructions: Avoid NSAIDs Discharge Disposition: HOME SELF-CARE
[2019-09-08 10:11] LABS: % Iron Saturation 5.85 (12.00-45.00); Ferritin 14.8 ng/mL (10.0-291.0)
== END 2019-09-07 16:16 | disposition home or self-care (01) ==
LOC: EC 16:10 → 5NMEDONC 20:05
PROVIDERS: ADMIT Hospitalist; ATTEND Hospitalist
DX: K25.9 Gastric ulcer, unspecified as acute or chronic, without hemorrhage or perforation (principal); D50.9 Iron deficiency anemia, unspecified; K29.60 Other gastritis without bleeding; E03.9 Hypothyroidism, unspecified; E11.9 Type 2 diabetes mellitus without complications; F41.9 Anxiety disorder, unspecified; G89.29 Other chronic pain; I10 Essential (primary) hypertension; J45.909 Unspecified asthma, uncomplicated; K21.9 Gastro-esophageal reflux disease without esophagitis; K44.9 Diaphragmatic hernia without obstruction or gangrene; K76.0 Fatty (change of) liver, not elsewhere classified; N20.0 Calculus of kidney; T39.395A Adverse effect of other nonsteroidal anti-inflammatory drugs [NSAID], initial encounter; Z79.82 Long term (current) use of aspirin; Z79.84 Long term (current) use of oral hypoglycemic drugs; Z79.890 Hormone replacement therapy; Z83.3 Family history of diabetes mellitus; Z87.442 Personal history of urinary calculi; Z87.891 Personal history of nicotine dependence; Z88.8 Allergy status to other drugs, medicaments and biological substances; E66.01 Morbid (severe) obesity due to excess calories; Z68.42 Body mass index [BMI] 45.0-49.9, adult
CPT/HCPCS: 96361 ×2; 96374; 96375; 99285; 36415; 93005; 88305; 80053; 82728; 82150; 83540; 83550; 83690; 84484; 85025; 82272; 81001; 87086; 87077; 87186; 71046; 76705; 45378; 43239; G0378 ×3; J2270; J2405; J2001; J2704; C9113

== ENCOUNTER 2020-03-04 09:33 | Day surgery (SDC) | payer BC, OTHER ==
[2020-03-02 11:11] VITALS: BMI 42.9
[~2020-03-04 09:33] MED LIST: LACTATED RINGERS 1,000 ML IV SCH
[2020-03-04 09:55] VITALS: RESP 16; TEMP 97.6
[2020-03-04] MEDS ORDERED: LIDOCAINE 1% (10MG/ML) FOR IV START INTRADERMA ONE (10:02)
[2020-03-04 10:06] LABS: Glucose,Whole Blood 383 mg/dL (75-99)
[2020-03-04] MEDS ORDERED: INSULIN ASPART (NovoLOG) 100 UNIT/ML VIAL SQ ONE (10:17)
[2020-03-04] MEDS ORDERED: PROPOFOL 10 MG/ML 20 ML VIAL IV ONE (10:47)
--- NOTE | 2020-03-04 10:57 | P.PCN ---
Date of Procedure: 03/04/20 Procedure(s) Performed: BRIEF HISTORY: Patient is a 55-year-old, pleasant, white female scheduled for an upper endoscopy as a part of follow-up of gastric ulcer with an upper endoscopy for months ago when she presented with acute upper GI bleed.. PROCEDURE PERFORMED: Esophagogastroduodenoscopy with biopsy. PREOPERATIVE DIAGNOSIS: Follow-up large gastric ulcer. IV sedation per anesthesia. PROCEDURE: After informed consent was obtained, the patient was brought into the endoscopy unit. IV sedation was administered by Anesthesia under continuous monitoring. Initially the Olympus GIF-140 video endoscope was inserted into the mouth. Esophagus intubated without any difficulty. It was gradually advanced into the stomach and duodenum and carefully examined. The bulb and the second part of the duodenum appeared normal. The scope at this time was withdrawn to the stomach, adequately insufflated with air, and upon careful examination, mucosa of the antrum, had diffuse gastritis and biopsies were done from this area. The previously noted gastric ulcer in the prepyloric area and the pyloric channel has completely healed. However there was mucosal erythema noted in the antrum and the prepyloric area which was biopsied. Rest of the body, cardia and the fundus appeared normal. The scope was then withdrawn into the esophagus. The GE junction was located at 39 cm from the incisors. Small sliding type hiatal hernia noted. The esophagus appeared normal. There were no erosions or ulcerations seen and the patient tolerated the procedure well. IMPRESSION: 1. Healed gastric ulcer. 2. Mucosal friability with erythema noted in the prepyloric area as well as antrum of the stomach status post multiple biopsies. 3. Small hiatal hernia RECOMMENDATIONS: The findings of this examination were discussed with the patient as well as a family. She was advised to follow with the biopsy results. She will avoid NSAIDs. Continue Prilosec as needed.
[2020-03-04 11:16] VITALS: BP 117/78; PULSE 76
[2020-03-04 11:20] LABS: Glucose,Whole Blood 337 mg/dL (75-99)
== END 2020-03-04 11:37 | disposition home or self-care (01) ==
LOC: ORWHC2ENDO 09:33
PROVIDERS: ATTEND Internal Medicine Gastroenterology
DX: K29.50 Unspecified chronic gastritis without bleeding (principal); K31.89 Other diseases of stomach and duodenum; K44.9 Diaphragmatic hernia without obstruction or gangrene; Z87.11 Personal history of peptic ulcer disease; E11.9 Type 2 diabetes mellitus without complications; E07.9 Disorder of thyroid, unspecified; K21.9 Gastro-esophageal reflux disease without esophagitis; D50.9 Iron deficiency anemia, unspecified; Z88.8 Allergy status to other drugs, medicaments and biological substances; Z88.6 Allergy status to analgesic agent; Z79.84 Long term (current) use of oral hypoglycemic drugs; Z79.899 Other long term (current) drug therapy; Z79.890 Hormone replacement therapy; Z90.49 Acquired absence of other specified parts of digestive tract; Z98.890 Other specified postprocedural states; Z90.89 Acquired absence of other organs
CPT/HCPCS: 88305; 43239; J2704

== ENCOUNTER 2020-04-09 18:31 | Emergency (ER) | payer OTHER, BC ==
[2020-04-09] MEDS ORDERED: ORPHENADRINE 30 MG/ML 2 ML VIAL IVP STA (19:39)
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
[2020-04-09 20:19] LABS: Basophils # (A) 0.1 k/uL (0-0.2); Basophils % (A) 1 %; Eosinophils # (A) 0.3 k/uL (0-0.7); Eosinophils % (A) 3 %; HCT 39.3 % (34.0-46.0); HGB 13.5 gm/dL (11.4-16.0); Lymphocytes # (A) 3.4 k/uL (1.0-4.8); Lymphocytes % (A) 41 %; MCH 29.7 pg (25.0-35.0); MCHC 34.5 g/dL (31.0-37.0); MCV 86.2 fL (80.0-100.0); Mean Platelet Volume 7.3; Monocytes # (A) 0.4 k/uL (0-1.0); Monocytes % (A) 4 %; Neutrophils # (A) 4.2 k/uL (1.3-7.7); Neutrophils % (A) 50 %; Platelet Count 243 k/uL (150-450); RBC 4.56 m/uL (3.80-5.40); RDW 14.7 % (11.5-15.5); WBC 8.4 k/uL (3.8-10.6)
[2020-04-09 20:21] LABS: Appearance,Urine Clear (Clear); Bacteria,Urine Few /hpf; Bilirubin,Urine Negative (Negative); Blood,Urine Negative (Negative); Color,Urine Light Yellow; Glucose,Urine (UA) Trace (Negative); Ketones,Urine Negative (Negative); Leukocyte Esterase,Urine Small (Negative); Mucus,Urine Rare /hpf; Nitrite,Urine Negative (Negative); Protein,Urine Negative (Negative); RBC,Urine <1 /hpf (0-5); Specific Gravity,Urine 1.014 (1.001-1.035); Squamous Epithelial Cell,Urine <1 /hpf (0-4); Urobilinogen,Urine <2.0 mg/dL (<2.0); WBC,Urine 14 /hpf (0-5)
[2020-04-09 20:31] LABS: INR 0.9 (<1.2); Partial Thromboplastin Time 22.7 sec (22.0-30.0); Prothrombin Time 9.9 sec (9.0-12.0)
[2020-04-09 20:39] VITALS: RESP 18
[2020-04-09 21:06] LABS: ALT 58 U/L (4-34); AST 68 U/L (14-36); African American GFR (CKD) >90 (>60 ml/min/1.73 sqM); Albumin 4.4 g/dL (3.5-5.0); Alcohol <10 mg/dL; Alkaline Phosphatase 77 U/L (38-126); Anion Gap 10 mmol/L; Blood Urea Nitrogen 20 mg/dL (7-17); Calcium 9.9 mg/dL (8.4-10.2); Carbon Dioxide 31 mmol/L (22-30); Chloride 93 mmol/L (98-107); Glucose 197 mg/dL (74-99); Non-African American GFR(CKD) >90 (>60 ml/min/1.73 sqM); Sodium 134 mmol/L (137-145); Total Bilirubin 0.4 mg/dL (0.2-1.3); Total Protein 7.5 g/dL (6.3-8.2)
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
[2020-04-09 22:40] VITALS: BP 126/81; PULSE 87; TEMP 98.9
== END 2020-04-09 22:40 | disposition home or self-care (01) ==
LOC: EC 18:31
DX: S13.4XXA Sprain of ligaments of cervical spine, initial encounter (principal); R51.9 Headache, unspecified; R07.89 Other chest pain; F41.9 Anxiety disorder, unspecified; E11.9 Type 2 diabetes mellitus without complications; K21.9 Gastro-esophageal reflux disease without esophagitis; E89.0 Postprocedural hypothyroidism; Z79.890 Hormone replacement therapy; Z79.899 Other long term (current) drug therapy; Z88.6 Allergy status to analgesic agent; Z88.8 Allergy status to other drugs, medicaments and biological substances; Z95.5 Presence of coronary angioplasty implant and graft; Z87.891 Personal history of nicotine dependence; V43.52XA Car driver injured in collision with other type car in traffic accident, initial encounter; Y93.89 Activity, other specified; Y92.481 Parking lot as the place of occurrence of the external cause
CPT/HCPCS: 36415; 93005; 86900; 86901; 80053; 84484; 85025; 85610; 85730; 86850; 81001; 80320; 72125; 70450; 71260; 74177; 99285; 96374; J2360; Q9967

== ENCOUNTER → 2020-05-17 | Outpatient (CLI) | payer BC ==
--- NOTE | 2020-05-18 14:15 | MM ---
Reason for exam: screening (asymptomatic). Last mammogram was performed 5 years and 1 month ago. History: Patient is postmenopausal and is nulliparous. Took hormonal contraceptives for 10 years. Physical Findings: A clinical breast exam by your physician is recommended on an annual basis and results should be correlated with mammographic findings. MG Screening Mammo w CAD Bilateral CC and MLO view(s) were taken. Prior study comparison: April 17, 2015, mammogram. February 14, 2014, mammogram. November 22, 2012, mammogram. There are scattered fibroglandular densities. Focal asymmetry right upper outer quadrant. No significant changes when compared with prior studies. ASSESSMENT: Benign, BI-RAD 2 RECOMMENDATION: Routine screening mammogram of both breasts in 1 year.
== END | disposition home or self-care (01) ==
LOC: RADMAMWWP 07:38
PROVIDERS: ATTEND Family Medicine
DX: Z12.31 Encounter for screening mammogram for malignant neoplasm of breast (principal)
CPT/HCPCS: 77067

== ENCOUNTER → 2021-04-01 | Outpatient (CLI) | payer BC ==
[2021-04-01 14:32] LABS: African American GFR (CKD) >90 (>60 ml/min/1.73 sqM); Blood Urea Nitrogen 18 mg/dL (7-17); Non-African American GFR(CKD) >90 (>60 ml/min/1.73 sqM)
--- NOTE | 2021-04-01 16:11 | CT ---
EXAMINATION TYPE: CT abdomen wo/w con DATE OF EXAM: 04/01/2021 COMPARISON: 04/09/2020 HISTORY: 56-year-old female intra-abdominal and pelvic swelling, mass-adrenal TECHNIQUE: Contiguous axial scanning of the abdomen following administration of 100 ml Isovue 300 IV contrast. 15 minute delayed images per adrenal mass protocol and coronal/sagittal reconstructions pe rformed. CT DLP: 2276 mGycm Automated exposure control for dose reduction was used. FINDINGS: Heart normal size without pericardial effusion. Tiny 4 mm subpleural pulmonary nodule posterolateral left lung base, axial image 16 unchanged. No pleural effusion. Small hiatal hernia. Liver enlarged at 20.5 cm. There is low attenuation suggesting fatty infiltration. Slight contour nod ularity is also noted. Clinical correlation to exclude cirrhosis. No focal liver lesion. Portal venou s system is patent. No biliary ductal dilatation. Cholecystectomy clips. Right adrenal gland, left kidney, spleen with small anterior-inferior splenules, and pancreas within normal limits. Punctate 3 mm nonobstructive right renal calculus. There is a 1.8 cm nodule of the left adrenal gland. Stable for one year. Attenuation on the noncontra st images is around 4 Hounsfield units compatible with a lipid rich adrenal adenoma. Moderate atherosclerotic calcifications infrarenal abdominal aorta and common iliac arteries. No abdo judie aortic aneurysm. No dilated small bowel, free fluid, or free air. No mesenteric or retroperitoneal lymphadenopathy. Mild stool burden. No pericolic inflammatory change. The pelvis is not imaged. Bones: No osseous destructive process. IMPRESSION: 1. 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 2. HEPATOMEGALY (20.5 CM) WITH HEPATIC STEATOSIS. GIVEN SLIGHT CONTOUR NODULARITY, FURTHER CLINICAL C ORRELATION RECOMMENDED TO EXCLUDE EARLY CIRRHOSIS. 3. PUNCTATE NONOBSTRUCTIVE 3 MM RIGHT RENAL CALCULUS.
== END | disposition home or self-care (01) ==
LOC: RADCTMAIN 13:23
PROVIDERS: ATTEND Family Medicine
DX: E27.8 Other specified disorders of adrenal gland (principal); K76.0 Fatty (change of) liver, not elsewhere classified; N20.0 Calculus of kidney; R16.0 Hepatomegaly, not elsewhere classified
CPT/HCPCS: 82565; 84520; 74170; 36415; Q9967

== ENCOUNTER → 2022-11-29 | Outpatient (CLI) | payer BC ==
--- NOTE | 2022-11-29 13:44 | USB ---
Reason for Exam: Clinical finding. Patient History: Menarche at age 9. Patient has no children. Postmenopausal. Patient used Hormonal Contraceptives for 10 years. Risk Values: Yvrose 5 year model risk: 1.7%. NCI Lifetime model risk: 9.1%. Prior Study Comparison: 02/14/2014 Screening Mammogram, Unknown. 04/17/2015 Screening Mammogram, Unknown. 05/17/2020 Bilateral Screening Mammogram, [facility]. Findings: Imaged: Ultrasound imaging of: All 4 quadrants, the retroareolar region and axilla. No evidence for organizing fluid collection or mass. Overall Assessment: Negative, BI-RAD 1 Management: Screening Mammogram of both breasts in 1 year. A clinical breast exam by your physician is recommended on an annual basis and results should be correlated with mammographic findings. This exam should not preclude additional follow-up of suspicious palpable abnormalities. Results were given to the patient verbally at the time of exam. Electronically signed and approved by: Manpreet Casey DO
--- NOTE | 2022-11-29 13:48 | MM ---
Reason for Exam: Clinical finding. Last mammogram was performed 2 year(s) and 7 month(s) ago. Indicated Problems: Pain of the left side (Global) for 2 Month(s) : luoq pain down to nipple. Patient History: Menarche at age 9. Patient has no children. Postmenopausal. Patient used Hormonal Contraceptives for 10 years. Risk Values: Yvrose 5 year model risk: 1.7%. NCI Lifetime model risk: 9.1%. Prior Study Comparison: 02/14/2014 Screening Mammogram, Unknown. 04/17/2015 Screening Mammogram, Unknown. 05/17/2020 Bilateral Screening Mammogram, [facility]. Tissue Density: There are scattered fibroglandular densities. Findings: Analyzed By CAD. No new suspicious masses, calcifications or distortions. Overall Assessment: Incomplete: need additional imaging evaluation, BI-RAD 0 Management: Diagnostic Breast Ultrasound of the left breast. Results were given to the patient verbally at the time of exam. Patient should continue monthly self-breast exams. A clinical breast exam by your physician is recommended on an annual basis. This exam should not preclude additional follow-up of suspicious palpable abnormalities. Note on Yvrose scores and lifetime risk: 1. A Yvrose score greater than 3% is considered moderate risk. If this is the case, consider specialist referral to assess eligibility for a risk reducing agent. 2. If overall lifetime risk for the development of breast cancer is 20% or higher, the patient may qualify for future screening with alternating mammogram and breast MRI. Electronically signed and approved by: Manpreet Casey DO
== END | disposition home or self-care (01) ==
LOC: RADMAMWWP 12:41
PROVIDERS: ATTEND Family Medicine
DX: N64.4 Mastodynia (principal); Z78.0 Asymptomatic menopausal state
CPT/HCPCS: 77062; 77066

== ENCOUNTER 2023-07-14 14:28 | Emergency (ER) | payer BC ==
[2023-07-14 14:55] VITALS: BP 120/65; PULSE 93; RESP 18; TEMP 98.6
--- NOTE | 2023-07-14 14:58 | ED ---
Female Urogenital HPI - General Chief complaint: Urogenital Stated complaint: urinating pain Time Seen by Provider: 07/14/23 14:57 Source: patient, RN notes reviewed Mode of arrival: ambulatory Limitations: no limitations - History of Present Illness Initial comments: Patient is a 58-year-old female presented to ER with chief complaint of painful urination. Patient states for the past 3 days she has been experiencing UTI symptoms. Including burning with urination, suprapubic pain, frequency. Denies any fevers, chills, night sweats. Patient denies UTIs frequently. Denies any other complaints at this time. - Related Data Home Medications Medication Instructions Recorded Confirmed Citalopram Hydrobromide [CeleXA] 20 mg PO HS 03/28/17 03/04/20 atenoloL [Tenormin] 50 mg PO QAM 03/28/17 03/04/20 Pioglitazone [Actos] 30 mg PO QAM 07/19/18 03/04/20 metFORMIN HCL [Glucophage] 1,000 mg PO BID 07/19/18 03/04/20 Albuterol Sulfate [Ventolin HFA] 2 puff INHALATION RT-Q4H PRN 09/05/19 03/04/20 Cholecalciferol (Vitamin D3) 125 mcg PO HS 09/05/19 03/04/20 [Vitamin D3 (5000 Iu)] Insulin Glargine,Hum.rec.anlog 40 units SQ HS 09/05/19 03/04/20 [Basaglar Kwikpen U-100] Levothyroxine Sodium [Synthroid] 150 mcg PO QAM 09/05/19 03/04/20 Iron 25 mg PO HS 03/02/20 03/04/20 Chlorthalidone 50 mg PO DAILY 03/04/20 03/04/20 Fluvastatin Sodium [Lescol] 20 mg PO HS 03/04/20 03/04/20 Omeprazole 40 mg PO DAILY 03/04/20 03/04/20 Previous Rx's Medication Instructions Recorded Cyclobenzaprine [Flexeril] 10 mg PO TID #15 tab 04/09/20 Cephalexin [Keflex] 500 mg PO Q8HR 5 Days #15 cap 07/14/23 Allergies Allergy/AdvReac Type Severity Reaction Status Date / Time bupropion [From Wellbutrin] Allergy Dyspnea/Hea Verified 07/14/23 14:35 daches/Hive s NSAIDS (Non-Steroidal AdvReac Unknown pt states Verified 07/14/23 14:35 Anti-Inflamma no NSAIDS per Review of Systems ROS Statement: Those systems with pertinent positive or pertinent negative responses have been documented in the HPI. ROS Other: All systems not noted in ROS Statement are negative. Past Medical History Past Medical History: Diabetes Mellitus, GERD/Reflux, Hypertension, Renal Disease, Thyroid Disorder Additional Past Medical History / Comment(s): Difficulty swallowing. HIATAL HERNIA, GRAVES DISEASE-"HAD HER THYROID RADIOACTIVELY DISSOLVED", KIDNEY STONES, ENVIRONMENTAL ALLERGIES, CELLULITIS LEFT LEG, ANEMIA. History of Any Multi-Drug Resistant Organisms: None Reported Past Surgical History: Cholecystectomy, Heart Catheterization, Orthopedic Surgery, Tonsillectomy Additional Past Surgical History / Comment(s): LITHOTRIPSY, LAPROSCOPIC SX, LT MEDIAL/LAT TIB SX D/T INJURY, THYROID RADIOACTIVEY DISSOLVED. , HEART CATH (MPH 2017?) Past Anesthesia/Blood Transfusion Reactions: No Reported Reaction Additional Past Anesthesia/Blood Transfusion Reaction / Comment(s): Pt has never received blood. Past Psychological History: Anxiety Smoking Status: Former smoker Past Alcohol Use History: None Reported Past Drug Use History: None Reported - Past Family History Father Family Medical History: Dementia, Diabetes Mellitus Mother Family Medical History: Cancer, Diabetes Mellitus, Thyroid Disorder Additional Family Medical History / Comment(s): GRAVES DISEASE,HERNIA,DJD-LT KNEE REPLACMENT. INTESTINAL ABCESS-HAD COLOSTOMY-SINCE REVERSED AND BLADDER SX. General Exam Limitations: no limitations Respiratory exam: Present: normal lung sounds bilaterally. Absent: respiratory distress, wheezes, rales, rhonchi, stridor Cardiovascular Exam: Present: regular rate, normal rhythm, normal heart sounds. Absent: systolic murmur, diastolic murmur, rubs, gallop, clicks GI/Abdominal exam: Present: soft, tenderness (Mild suprapubic tenderness), normal bowel sounds. Absent: distended, guarding, rebound, rigid Neurological exam: Present: alert, oriented X3, CN II-XII intact Psychiatric exam: Present: normal affect, normal mood Skin exam: Present: warm, dry, intact, normal color. Absent: rash Course Vital Signs 07/14/23 14:33 Temperature 98.6 F Pulse Rate 93 Respiratory 18 Rate Blood Pressure 120/65 O2 Sat by Pulse 95 Oximetry Medical Decision Making - Medical Decision Making Was pt. sent in by a medical professional or institution ([facility]patrick, [facility], urgent care, hospital, or prison...) When possible be specific @ -No Did you speak to anyone other than the patient for history (EMS, parent, family, police, friend...)? What history was obtained from this source @ -No Did you review nursing and triage notes (agree or disagree)? Why? @ -I reviewed and agree with nursing and triage notes Were old charts reviewed (outside hosp., previous admission, EMS record, old EKG, old radiological studies, urgent care reports/EKG's, prison records)? Report findings @ -No old charts were reviewed Differential Diagnosis (chest pain, altered mental status, abdominal pain women, abdominal pain men, vaginal bleeding, weakness, fever, dyspnea, syncope, headache, dizziness, GI bleed, back pain, seizure, CVA, palpatations, mental health, musculoskeletal)? @ -Differential Abdominal Pain Women:Appendicitis, Cholecystitis, diverticulosis, ischemic bowel, pancreatitis, hepatitis, UTI, gastroenteritis, AAA, incarcerated hernia, bowel obstruction, constipation, inflammatory bowel, hepatitis, peptic ulcer disease, splenic infarction, perforated viscus, vulvitis, ovarian torsion, PID, kidney stone, placenta abruption, this is not meant to be an all-inclusive list EKG interpreted by me (3pts min.). @ -None done X-rays interpreted by me (1pt min.). @ -None done CT interpreted by me (1pt min.). @ -None done U/S interpreted by me (1pt. min.). @ -None done What testing was considered but not performed or refused? (CT, X-rays, U/S, labs)? Why? @ -None What meds were considered but not given or refused? Why? @ -None Did you discuss the management of the patient with other professionals (professionals i.e. PAOLA Fitzpatrick, [facility], lab, RT, psych nurse, social services specialist, perinatal nurse, teacher, loan service officer, case technician)? Give summary @ -No Was smoking cessation discussed for >3mins.? @ -No Was critical care preformed (if so, how long)? @ -No Were there social determinants of health that impacted care today? How? (Homelessness, low income, unemployed, alcoholism, drug addiction, transportation, low edu. Level, literacy, decrease access to med. care, senior living, rehab)? @ -No Was there de-escalation of care discussed even if they declined (Discuss DNR or withdrawal of care, Hospice)? DNR status @ -No What co-morbidities impacted this encounter? (DM, HTN, Smoking, COPD, CAD, Cancer, CVA, ARF, Chemo, Hep., AIDS, mental health diagnosis, sleep apnea, morbid obesity)? @ -Obese Was patient admitted / discharged? Hospital course, mention meds given and route, prescriptions, significant lab abnormalities, going to OR and other pertinent info. @ -Discharged. Patient is a 58 year old female presenting to the ER with a chief complaint of dysuira. History and physical exam completed. Vitals stable. Patient in no signs of acute distress and nontoxic appearing. Mild suprapubic tenderness to palpitation. Urinalysis positive for infection. Patient received oral Tylenol for pain control in the ER. IM Rocephin given. Patient prescribed Keflex. Return parameters discussed. Patient be discharged stable condition with follow-up to PCP. Patient expressed understanding and agreement with care plan. Undiagnosed new problem with uncertain prognosis? @ -No Drug Therapy requiring intensive monitoring for toxicity (Heparin, Nitro, Insulin, Cardizem)? @ -No Were any procedures done? @ -No Diagnosis/symptom? @ -Urinary tract infection Acute, or Chronic, or Acute on Chronic? @ -Acute Uncomplicated (without systemic symptoms) or Complicated (systemic symptoms)? @ -Uncomplicated Side effects of treatment? @ -No Exacerbation, Progression, or Severe Exacerbation? @ -No Poses a threat to life or bodily function? How? (Chest pain, [place], [place], pneumonia, PE, COPD, DKA, ARF, appy, cholecystitis, CVA, Diverticulitis, Homicidal, Suicidal, threat to staff... and all critical care pts) @ -No - Lab Data Lab Results 07/14/23 Range/Units 15:35 Urine Color Yellow Urine Appearance Cloudy H (Clear) Urine pH 6.0 (5.0-8.0) Ur Specific [place] 1.014 (1.001-1.035) Urine Protein 1+ H (Negative) Urine Glucose (UA) Negative (Negative) Urine Ketones Negative (Negative) Urine Blood Small H (Negative) Urine Nitrite Positive H (Negative) Urine Bilirubin Negative (Negative) Urine Urobilinogen <2.0 (<2.0) mg/dL Ur Leukocyte Esterase Large H (Negative) Urine RBC 12 H (0-5) /hpf Urine WBC >182 H (0-5) /hpf Ur Squamous Epith Cells 1 (0-4) /hpf Urine Bacteria Moderate H (None) /hpf Urine Mucus Rare H (None) /hpf Disposition Clinical Impression: Urinary tract infection Disposition: HOME SELF-CARE Condition: Stable Instructions (If sedation given, give patient instructions): Urinary Tract Infection in Women (ED) Additional Instructions: Please complete full course of antibiotics. Return to ER for any new or worsening symptoms. Prescriptions: Cephalexin [Keflex] 500 mg PO Q8HR 5 Days #15 cap Is patient prescribed a controlled substance at d/c from ED?: No Referrals: Allen Moreno DO [Primary Care Provider] - 1-2 days Time of Disposition: 16:23
[2023-07-14] MEDS: ACETAMINOPHEN TAB 325 MG TAB PO STA (15:41)
[2023-07-14 16:04] LABS: Appearance,Urine Cloudy (Clear); Bacteria,Urine Moderate /hpf; Bilirubin,Urine Negative (Negative); Blood,Urine Small (Negative); Color,Urine Yellow; Glucose,Urine (UA) Negative (Negative); Ketones,Urine Negative (Negative); Leukocyte Esterase,Urine Large (Negative); Mucus,Urine Rare /hpf; Nitrite,Urine Positive (Negative); Protein,Urine 1+ (Negative); RBC,Urine 12 /hpf (0-5); Specific Gravity,Urine 1.014 (1.001-1.035); Squamous Epithelial Cell,Urine 1 /hpf (0-4); Urobilinogen,Urine <2.0 mg/dL (<2.0); WBC,Urine >182 /hpf (0-5)
[2023-07-14] MEDS: cefTRIAXone 1,000 MG VIAL (IM USE) IM STA (17:04)
== END 2023-07-14 17:18 | disposition home or self-care (01) ==
LOC: EC 14:28
DX: N39.0 Urinary tract infection, site not specified (principal); B97.0 Adenovirus as the cause of diseases classified elsewhere; I10 Essential (primary) hypertension; E11.9 Type 2 diabetes mellitus without complications; K21.9 Gastro-esophageal reflux disease without esophagitis; E07.9 Disorder of thyroid, unspecified; Z79.84 Long term (current) use of oral hypoglycemic drugs; Z79.890 Hormone replacement therapy; Z79.899 Other long term (current) drug therapy; Z79.4 Long term (current) use of insulin; Z87.891 Personal history of nicotine dependence; Z88.6 Allergy status to analgesic agent; Z88.8 Allergy status to other drugs, medicaments and biological substances; Z90.49 Acquired absence of other specified parts of digestive tract
CPT/HCPCS: 81001; 87086; 99283; 96372; J0696

== ENCOUNTER 2023-08-21 13:03 | Observation (INO) | payer BC ==
--- NOTE | 2023-08-21 13:26 | ED ---
General Adult HPI - General Chief complaint: Neuro Symptoms/Deficit Stated complaint: Facial numbness Time Seen by Provider: 08/21/23 13:10 Source: patient, RN notes reviewed, old records reviewed Mode of arrival: ambulatory Limitations: no limitations - History of Present Illness Initial comments: This is a 58-year-old female who presents to the emergency department with a past medical history significant for diabetes high blood pressure high cholest dann and Graves' disease. Patient comes in today because she was at work today started having some lightheadedness then became nauseous had some pain on the lateral aspect of the left side of her nose had some tingling in her left arm and had an achiness in her chest. Patient states although symptoms persist at this time. Patient denies any actual numbness or weakness. Patient has any visual disturbance. Patient is any slurred speech. Patient states when she walked she felt a little off balance. - Related Data Home Medications Medication Instructions Recorded Confirmed Citalopram Hydrobromide [CeleXA] 20 mg PO HS 03/28/17 03/04/20 atenoloL [Tenormin] 50 mg PO QAM 03/28/17 03/04/20 Pioglitazone [Actos] 30 mg PO QAM 07/19/18 03/04/20 metFORMIN HCL [Glucophage] 1,000 mg PO BID 07/19/18 03/04/20 Albuterol Sulfate [Ventolin HFA] 2 puff INHALATION RT-Q4H PRN 09/05/19 03/04/20 Cholecalciferol (Vitamin D3) 125 mcg PO HS 09/05/19 03/04/20 [Vitamin D3 (5000 Iu)] Insulin Glargine,Hum.rec.anlog 40 units SQ HS 09/05/19 03/04/20 [Basaglar Kwikpen U-100] Levothyroxine Sodium [Synthroid] 150 mcg PO QAM 09/05/19 03/04/20 Iron 25 mg PO HS 03/02/20 03/04/20 Chlorthalidone 50 mg PO DAILY 03/04/20 03/04/20 Fluvastatin Sodium [Lescol] 20 mg PO HS 03/04/20 03/04/20 Omeprazole 40 mg PO DAILY 03/04/20 03/04/20 Previous Rx's Medication Instructions Recorded Cyclobenzaprine [Flexeril] 10 mg PO TID #15 tab 04/09/20 Cephalexin [Keflex] 500 mg PO Q8HR 5 Days #15 cap 07/14/23 Allergies Allergy/AdvReac Type Severity Reaction Status Date / Time bupropion [From Wellbutrin] Allergy Dyspnea/Hea Verified 07/14/23 14:35 daches/Hive s NSAIDS (Non-Steroidal AdvReac Unknown pt states Verified 07/14/23 14:35 Anti-Inflamma no NSAIDS per Review of Systems ROS Statement: Those systems with pertinent positive or pertinent negative responses have been documented in the HPI. ROS Other: All systems not noted in ROS Statement are negative. Past Medical History Past Medical History: Diabetes Mellitus, GERD/Reflux, Hypertension, Renal Disease, Thyroid Disorder Additional Past Medical History / Comment(s): Difficulty swallowing. HIATAL HERNIA, GRAVES DISEASE-"HAD HER THYROID RADIOACTIVELY DISSOLVED", KIDNEY STONES, ENVIRONMENTAL ALLERGIES, CELLULITIS LEFT LEG, ANEMIA. History of Any Multi-Drug Resistant Organisms: None Reported Past Surgical History: Cholecystectomy, Heart Catheterization, Orthopedic Surgery, Tonsillectomy Additional Past Surgical History / Comment(s): LITHOTRIPSY, LAPROSCOPIC SX, LT MEDIAL/LAT TIB SX D/T INJURY, THYROID RADIOACTIVEY DISSOLVED. , HEART CATH (MPH 2017?) Past Anesthesia/Blood Transfusion Reactions: No Reported Reaction Additional Past Anesthesia/Blood Transfusion Reaction / Comment(s): Pt has never received blood. Past Psychological History: Anxiety Past Alcohol Use History: Rare - Past Family History Father Family Medical History: Dementia, Diabetes Mellitus Mother Family Medical History: Cancer, Diabetes Mellitus, Thyroid Disorder Additional Family Medical History / Comment(s): GRAVES DISEASE,HERNIA,DJD-LT KNEE REPLACMENT. INTESTINAL ABCESS-HAD COLOSTOMY-SINCE REVERSED AND BLADDER SX. General Exam - General Exam Comments Initial Comments: GENERAL: Patient is well-developed and well-nourished. Patient is nontoxic and well- hydrated and is in mild distress. ENT: Neck is soft and supple. No significant lymphadenopathy is noted. Oropharynx is clear. Moist mucous membranes. Neck has full range of motion without eliciting any pain. On the left lateral aspect of the nose on the cheek it is mildly tender there is no redness no swelling no mass felt EYES: The sclera were anicteric and conjunctiva were pink and moist. Extraocular movements were intact and pupils were equal round and reactive to light. Eyelids were unremarkable. PULMONARY: Unlabored respirations. Good breath sounds bilaterally. No audible rales rhonchi or wheezing was noted. CARDIOVASCULAR: There is a regular rate and rhythm without any murmurs gallops or rubs. ABDOMEN: Soft and nontender with normal bowel sounds. No palpable organomegaly was noted. There is no palpable pulsatile mass. SKIN: Skin is clear with no lesions or rashes and otherwise unremarkable. NEUROLOGIC: Patient is alert and oriented x3. Cranial nerves II through XII are grossly intact. Motor and sensory are also intact. Normal speech, volume and content. Symmetrical smile. Finger-nose testing for cerebellum was normal mcqueen to heel was normal bilaterally. NIH is 0 MUSCULOSKELETAL: Normal extremities with adequate strength and full range of motion. No lower extremity swelling or edema. No calf tenderness. LYMPHATICS: No significant lymphadenopathy is noted PSYCHIATRIC: Normal psychiatric evaluation. Limitations: no limitations Course Vital Signs 08/21/23 08/21/23 08/21/23 13:07 14:00 15:45 Temperature 98.1 F 98.3 F Pulse Rate 91 90 Pulse Rate [ 86 Right Radial] Respiratory 16 18 18 Rate Blood Pressure 148/82 138/72 Blood Pressure 154/78 [Left Arm Sitting] Blood Pressure 151/78 [Left Arm Standing] Blood Pressure 138/72 [Left Arm Supine] O2 Sat by Pulse 97 95 95 Oximetry 08/21/23 16:36 Temperature Pulse Rate 85 Pulse Rate [ Right Radial] Respiratory 18 Rate Blood Pressure 112/67 Blood Pressure [Left Arm Sitting] Blood Pressure [Left Arm Standing] Blood Pressure [Left Arm Supine] O2 Sat by Pulse 96 Oximetry Medical Decision Making - Medical Decision Making EKG is interpreted by myself. EKG shows a sinus rhythm at 88 bpm parables 149 QRS is 90 QT interval 392 QTc is 437. Patient's EKG shows no ST segment ovation or depression. Was pt. sent in by a medical professional or institution (, PA, ACTIVITIES OFFICER, urgent care, hospital, or fci...) When possible be specific @ -No Did you speak to anyone other than the patient for history (EMS, parent, family, police, friend...)? What history was obtained from this source @ -No Did you review nursing and triage notes (agree or disagree)? Why? @ -I reviewed and agree with nursing and triage notes Were old charts reviewed (outside hosp., previous admission, EMS record, old EKG, old radiological studies, urgent care reports/EKG's, fci records)? Report findings @ -I reviewed prior radiological studies and compared with this chest x-ray and saw no acute abnormality. I reviewed prior lab work as well in comparison with today's lab work. Differential Diagnosis (chest pain, altered mental status, abdominal pain women, abdominal pain men, vaginal bleeding, weakness, fever, dyspnea, syncope, headache, dizziness, GI bleed, back pain, seizure, CVA, palpatations, mental health, musculoskeletal)? @ -Differential Chest Pain: Stable Angina, Unstable Angina, STEMI, NSTEMI Aortic Dissection, Pneumothorax, Musculoskeletal, Esophageal Spasm GERD, Cholecystitis, Pancreatitis, Zoster, this is not meant to be an all-inclusive list. EKG interpreted by me (3pts min.). @ -As above X-rays interpreted by me (1pt min.). @ -Chest x-ray shows no acute abnormality CT interpreted by me (1pt min.). @ -None done U/S interpreted by me (1pt. min.). @ -None done What testing was considered but not performed or refused? (CT, X-rays, U/S, labs)? Why? @ -None What meds were considered but not given or refused? Why? @ -None Did you discuss the management of the patient with other professionals (professionals i.e. , PA, ACTIVITIES OFFICER, lab, RT, psych nurse, director social service, forensic pathologist, teacher, activities officer, rehabilitation case coordinator)? Give summary @ -[facility] and I wrote admitting orders Was smoking cessation discussed for >3mins.? @ -No Was critical care preformed (if so, how long)? @ -No Were there social determinants of health that impacted care today? How? (Homelessness, low income, unemployed, alcoholism, drug addiction, transportation, low edu. Level, literacy, decrease access to med. care, detention, rehab)? @ -No Was there de-escalation of care discussed even if they declined (Discuss DNR or withdrawal of care, Hospice)? DNR status @ -No What co-morbidities impacted this encounter? (DM, HTN, Smoking, COPD, CAD, Cancer, CVA, ARF, Chemo, Hep., AIDS, mental health diagnosis, sleep apnea, morbid obesity)? @ -Hypertension diabetes and high cholesterol Was patient admitted / discharged? Hospital course, mention meds given and route, prescriptions, significant lab abnormalities, going to OR and other pertinent info. @ -Patient continued have some chest discomfort while in the emergency department so the labs were normal I admitted the patient I wrote admitting orders and I consult cardiology Undiagnosed new problem with uncertain prognosis? @ -No Drug Therapy requiring intensive monitoring for toxicity (Heparin, Nitro, Insulin, Cardizem)? @ -No Were any procedures done? @ -No Diagnosis/symptom? @ -Chest pain Acute, or Chronic, or Acute on Chronic? @ -Acute Uncomplicated (without systemic symptoms) or Complicated (systemic symptoms)? @ -Complicated Side effects of treatment? @ -No Exacerbation, Progression, or Severe Exacerbation? @ -No Poses a threat to life or bodily function? How? (Chest pain, USA, MS, pneumonia, PE, COPD, DKA, ARF, appy, cholecystitis, CVA, Diverticulitis, Homicidal, Suicidal, threat to staff... and all critical care pts) @ -Yes this can lead to an MS and endorgan dysfunction Diagnosis/symptom? @ -Urinary tract infection Acute, or Chronic, or Acute on Chronic? @ -Acute Uncomplicated (without systemic symptoms) or Complicated (systemic symptoms)? @ -Complicated Side effects of treatment? @ -None Exacerbation, Progression, or Severe Exacerbation] @ -No Poses a threat to life or bodily function? @ -No - Lab Data Result diagrams: 08/21/23 13:23 08/21/23 13:23 Lab Results 08/21/23 08/21/23 08/21/23 Range/Units 13:23 13:23 13:23 WBC 10.8 H (3.8-10.6) k/uL RBC 3.98 (3.80-5.40) m/uL Hgb 12.0 (11.4-16.0) gm/dL Hct 35.8 (34.0-46.0) % MCV 90.0 (80.0-100.0) fL MCH 30.1 (25.0-35.0) pg MCHC 33.4 (31.0-37.0) g/dL RDW 14.1 (11.5-15.5) % Plt Count 261 (150-450) k/uL MPV 7.3 Neutrophils % 81 % Lymphocytes % 12 % Monocytes % 3 % Eosinophils % 4 % Basophils % 0 % Neutrophils # 8.8 H (1.3-7.7) k/uL Lymphocytes # 1.3 (1.0-4.8) k/uL Monocytes # 0.3 (0-1.0) k/uL Eosinophils # 0.4 (0-0.7) k/uL Basophils # 0.0 (0-0.2) k/uL PT 10.1 (10.0-12.5) sec INR 0.9 (<1.2) APTT 24.6 (22.0-30.0) sec Sodium (137-145) mmol/L Potassium (3.5-5.1) mmol/L Chloride (98-107) mmol/L Carbon Dioxide (22-30) mmol/L Anion Gap mmol/L BUN (7-17) mg/dL Creatinine (0.52-1.04) mg/dL Est GFR (CKD-EPI)AfAm (>60 ml/min/1.73 sqM) Est GFR (CKD-EPI)NonAf (>60 ml/min/1.73 sqM) Glucose (74-99) mg/dL Plasma Lactic Acid Siva (0.7-2.0) mmol/L Calcium (8.4-10.2) mg/dL Magnesium (1.6-2.3) mg/dL Total Bilirubin (0.2-1.3) mg/dL AST (14-36) U/L ALT (4-34) U/L Alkaline Phosphatase (38-126) U/L Troponin I (0.000-0.034) ng/mL Total Protein (6.3-8.2) g/dL Albumin (3.5-5.0) g/dL Urine Color Dark Brown Urine Appearance Cloudy H (Clear) Urine pH 5.5 (5.0-8.0) Ur Specific [place] 1.024 (1.001-1.035) Urine Protein Trace H (Negative) Urine Glucose (UA) Negative (Negative) Urine Ketones Negative (Negative) Urine Blood Negative (Negative) Urine Nitrite Positive H (Negative) Urine Bilirubin 1+ H (Negative) Urine Urobilinogen 3.0 (<2.0) mg/dL Ur Leukocyte Esterase Moderate H (Negative) Urine WBC 51 H (0-5) /hpf Ur Squamous Epith Cells 5 H (0-4) /hpf Urine Bacteria Moderate H (None) /hpf Urine Mucus Rare H (None) /hpf 08/21/23 08/21/23 08/21/23 Range/Units 13:23 13:23 15:39 WBC (3.8-10.6) k/uL RBC (3.80-5.40) m/uL Hgb (11.4-16.0) gm/dL Hct (34.0-46.0) % MCV (80.0-100.0) fL MCH (25.0-35.0) pg MCHC (31.0-37.0) g/dL RDW (11.5-15.5) % Plt Count (150-450) k/uL MPV Neutrophils % % Lymphocytes % % Monocytes % % Eosinophils % % Basophils % % Neutrophils # (1.3-7.7) k/uL Lymphocytes # (1.0-4.8) k/uL Monocytes # (0-1.0) k/uL Eosinophils # (0-0.7) k/uL Basophils # (0-0.2) k/uL PT (10.0-12.5) sec INR (<1.2) APTT (22.0-30.0) sec Sodium 137 (137-145) mmol/L Potassium 3.2 L (3.5-5.1) mmol/L Chloride 97 L (98-107) mmol/L Carbon Dioxide 27 (22-30) mmol/L Anion Gap 13 mmol/L BUN 24 H (7-17) mg/dL Creatinine 0.93 (0.52-1.04) mg/dL Est GFR (CKD-EPI)AfAm 78 (>60 ml/min/1.73 sqM) Est GFR (CKD-EPI)NonAf 68 (>60 ml/min/1.73 sqM) Glucose 130 H (74-99) mg/dL Plasma Lactic Acid Siva 2.9 H* (0.7-2.0) mmol/L Calcium 10.1 (8.4-10.2) mg/dL Magnesium 1.7 (1.6-2.3) mg/dL Total Bilirubin 0.3 (0.2-1.3) mg/dL AST 38 H (14-36) U/L ALT 34 (4-34) U/L Alkaline Phosphatase 64 (38-126) U/L Troponin I <0.012 (0.000-0.034) ng/mL Total Protein 7.5 (6.3-8.2) g/dL Albumin 4.3 (3.5-5.0) g/dL Urine Color Urine Appearance (Clear) Urine pH (5.0-8.0) Ur Specific [place] (1.001-1.035) Urine Protein (Negative) Urine Glucose (UA) (Negative) Urine Ketones (Negative) Urine Blood (Negative) Urine Nitrite (Negative) Urine Bilirubin (Negative) Urine Urobilinogen (<2.0) mg/dL Ur Leukocyte Esterase (Negative) Urine WBC (0-5) /hpf Ur Squamous Epith Cells (0-4) /hpf Urine Bacteria (None) /hpf Urine Mucus (None) /hpf Disposition Clinical Impression: Chest pain, Urinary tract infection Disposition: ADMITTED IP TO THIS HOSP Referrals: Allen Moreno DO [Primary Care Provider] - 1-2 days Time of Disposition: 17:02
[2023-08-21 13:47] LABS: Basophils % (A) 0 %; Eosinophils # (A) 0.4 k/uL (0-0.7); Eosinophils % (A) 4 %; HCT 35.8 % (34.0-46.0); Lymphocytes # (A) 1.3 k/uL (1.0-4.8); Lymphocytes % (A) 12 %; MCH 30.1 pg (25.0-35.0); MCHC 33.4 g/dL (31.0-37.0); Mean Platelet Volume 7.3; Monocytes # (A) 0.3 k/uL (0-1.0); Monocytes % (A) 3 %; Neutrophils # (A) 8.8 k/uL (1.3-7.7); Neutrophils % (A) 81 %; Platelet Count 261 k/uL (150-450); RBC 3.98 m/uL (3.80-5.40); RDW 14.1 % (11.5-15.5); WBC 10.8 k/uL (3.8-10.6)
[2023-08-21 13:52] LABS: INR 0.9 (<1.2); Partial Thromboplastin Time 24.6 sec (22.0-30.0); Prothrombin Time 10.1 sec (10.0-12.5)
[2023-08-21] MEDS: ONDANSETRON 4 MG/2 ML VIAL IVP STA (13:55)
[2023-08-21] MEDS: SODIUM CHLORIDE 0.9% 500 ML 500 ML IV ONE (13:55)
--- NOTE | 2023-08-21 14:02 | XR ---
EXAMINATION TYPE: XR chest 2V DATE OF EXAM: 08/21/2023 COMPARISON: 09/05/2019 INDICATION: Left-sided weakness and numbness TECHNIQUE: Frontal and lateral views of the chest are obtained. FINDINGS: The heart size is normal. The pulmonary vasculature is normal. The lungs are clear. IMPRESSION: 1. No acute pulmonary process.
[2023-08-21 14:04] LABS: ALT 34 U/L (4-34); AST 38 U/L (14-36); African American GFR (CKD) 78 (>60 ml/min/1.73 sqM); Albumin 4.3 g/dL (3.5-5.0); Alkaline Phosphatase 64 U/L (38-126); Anion Gap 13 mmol/L; Blood Urea Nitrogen 24 mg/dL (7-17); Calcium 10.1 mg/dL (8.4-10.2); Carbon Dioxide 27 mmol/L (22-30); Chloride 97 mmol/L (98-107); Glucose 130 mg/dL (74-99); Magnesium 1.7 mg/dL (1.6-2.3); Non-African American GFR(CKD) 68 (>60 ml/min/1.73 sqM); Potassium 3.2 mmol/L (3.5-5.1); Sodium 137 mmol/L (137-145); Total Bilirubin 0.3 mg/dL (0.2-1.3); Total Protein 7.5 g/dL (6.3-8.2)
[2023-08-21 14:24] LABS: Appearance,Urine Cloudy (Clear); Bacteria,Urine Moderate /hpf; Bilirubin,Urine 1+ (Negative); Blood,Urine Negative (Negative); Color,Urine Dark Brown; Glucose,Urine (UA) Negative (Negative); Ketones,Urine Negative (Negative); Leukocyte Esterase,Urine Moderate (Negative); Mucus,Urine Rare /hpf; Nitrite,Urine Positive (Negative); PH, Urine 5.5 (5.0-8.0); Protein,Urine Trace (Negative); Specific Gravity,Urine 1.024 (1.001-1.035); Squamous Epithelial Cell,Urine 5 /hpf (0-4); WBC,Urine 51 /hpf (0-5)
[2023-08-21] MEDS: POTASSIUM CHLORIDE ER 20 MEQ TAB.ER PO STA (14:26)
[2023-08-21] MEDS: cefTRIAXone IN SWFI 1,000 MG/10 ML SYRINGE IVP STA ×2 (15:38→15:39)
[2023-08-21] MEDS: NITROGLYCERIN OINT 1 INCH/GM PACKET TOPICAL STA (15:38)
[2023-08-21] MEDS: ACETAMINOPHEN TAB 500 MG TAB PO STA (15:39)
[2023-08-21] MEDS ORDERED: NITROGLYCERIN SL TABS 0.4 MG TAB SUBLINGUAL PRN (17:03)
[2023-08-21] MEDS: NITROGLYCERIN OINT 1 INCH/GM PACKET TOPICAL SCH (17:10)
[2023-08-21] MEDS: SODIUM CHLORIDE 0.9% 1,000 ML IV SCH (17:47)
[2023-08-22] MEDS ORDERED: ONDANSETRON 4 MG/2 ML VIAL IVP PRN (04:09)
[2023-08-22] MEDS ORDERED: ACETAMINOPHEN TAB 325 MG TAB PO PRN (04:09)
[2023-08-22] MEDS ORDERED: DEXTROSE 50% SYRINGE 50 ML IVP PRN ×2 (04:11)
[2023-08-22 04:37] LABS: Glucose,Whole Blood 134 mg/dL (70-110)
[2023-08-22] MEDS: LEVOTHYROXINE 75 MCG TAB PO SCH (06:32)
[2023-08-22] MEDS: INSULIN ASPART (NovoLOG) 100 UNIT/ML VIAL SQ SCH (07:43)
[2023-08-22] MEDS ORDERED: REGADENOSON 0.4 MG/5 ML SYRINGE IV PRN (08:19)
[2023-08-22] MEDS ORDERED: CAFFEINE CITRATE 60 MG/3 ML VIAL IV PRN (08:19)
[2023-08-22] MEDS ORDERED: AMINOPHYLLINE 500 MG/20 ML VIAL IV PRN (08:19)
[2023-08-22 09:15] VITALS: BP 105/67; PULSE 86; RESP 16; TEMP 97.4
--- NOTE | 2023-08-22 09:21 | P.CRDCN ---
History of Present Illness Consult date: 08/22/23 Consult reason: chest pain History of present illness: History of present illness: This is a 58-year-old female with past medical history significant for hypertension, hyperlipidemia, Graves disease, diabetes mellitus, obesity and former tobacco abuse. We have been asked to evaluate the patient for chest pain. Patient states that yesterday while she was at work she had a weird feeling with tingling in her face on the left side along with left arm and left chest pain. It lasted for about 45 minutes to 1 hour. She was sitting at the desk when it started. She also experienced some nausea and some dizziness. No sweats no shortness of breath. She believes Nitropaste may have helped or could have been the antibiotics that she was given at the same time. She denies history of smoking and rare alcohol use. She has a father with history of CHF and a brother that had CABG in his mid 50s. She states she has been at the hospital in the past for chest pain thought to be anxiety but this time she was concerned that she was having a stroke. She is also being treated for UTI. She denies any dysuria but does feel she has some pressure in the lower pelvic area. Patient was seen many years ago in [address] Crane when she underwent cardiac catheterization in 2017 that revealed normal EF and minimal CAD. Echocardiogram at that time also revealed normal EF. EKG sinus rhythm with no acute ST changes. Chest x-ray: No acute process. WBC 10.8, hemoglobin 12.0. INR 0.9. Sodium 137, potassium 3.2, BUN 24 creatinine 0.93. Lactic acid 2.9 now 1.9. Troponins negative x 3. Blood sugar 130. Urinalysis positive for nitrate, moderate leukoesterase, WBC 51, squamous cell 5, bacteria moderate. Home cardiac medications: Atenolol 50 mg daily, chlorthalidone 50 mg daily as needed. Review Of Systems: At the time of my exam: CONSTITUTIONAL: Denies fever or chills. HEENT: Denies blurred vision, vision changes, or eye pain. Denies hemoptysis CARDIOVASCULAR: Denies chest pain. Denies orthopnea. Denies PND. Denies palpitations RESPIRATORY: Denies shortness of breath. GASTROINTESTINAL: Denies abdominal pain. Denies nausea or vomiting. HEMATOLOGIC: Denies bleeding disorders. GENITOURINARY: Denies any blood in urine. SKIN: Denies pruitis. Denies rash. Physical examination: Gen: This is a morbidly obese 58-year-old female in no acute distress VS: reviewed blood pressure 134/75, heart rate 96, pulse ox 97% on room air, afe brile. HEENT: Head is atraumatic, normocephalic. Pupils equal, round. Sclerae is anicteric. NECK: Supple. No JVD. LUNGS: Clear to auscultation. No wheezes or rhonchi. No intercostal retractions. HEART: Regular rate and rhythm. No murmur. ABDOMEN: Soft No tenderness. EXTREMITIES: No pedal edema. No calf tenderness. NEUROLOGICAL: Patient is awake, alert and oriented x3. Assessment: Atypical chest pain, acute coronary syndrome ruled out Hypertension Hyperlipidemia Graves' disease Diabetes Morbid obesity with BMI of 41 Remote history of tobacco use and dependence Plan: Resume patient's home cardiac medications Schedule patient for Lexiscan stress test today Obtain 2-D echocardiogram and Doppler study to assess cardiac structure and function If above testing is unremarkable, patient is cleared for discharge and may follow-up with Dr. Landin in 1 to 2 weeks. Thank you kindly for this consultation. Nurse practitioner note has been reviewed, I agree with documented findings and plan of care. Patient was seen and examined. Past Medical History Past Medical History: Diabetes Mellitus, GERD/Reflux, Hypertension, Renal Disease, Thyroid Disorder Additional Past Medical History / Comment(s): Difficulty swallowing. HIATAL HERNIA, GRAVES DISEASE-"HAD HER THYROID RADIOACTIVELY DISSOLVED", KIDNEY STONES, ENVIRONMENTAL ALLERGIES, CELLULITIS LEFT LEG, ANEMIA. History of Any Multi-Drug Resistant Organisms: None Reported Past Surgical History: Cholecystectomy, Heart Catheterization, Orthopedic Surgery, Tonsillectomy Additional Past Surgical History / Comment(s): LITHOTRIPSY, LAPROSCOPIC SX, LT MEDIAL/LAT TIB SX D/T INJURY, THYROID RADIOACTIVEY DISSOLVED. , HEART CATH (MPH 2017?) Past Anesthesia/Blood Transfusion Reactions: No Reported Reaction Additional Past Anesthesia/Blood Transfusion Reaction / Comment(s): Pt has never received blood. Past Psychological History: Anxiety Past Alcohol Use History: Rare - Past Family History Father Family Medical History: Dementia, Diabetes Mellitus Mother Family Medical History: Cancer, Diabetes Mellitus, Thyroid Disorder Additional Family Medical History / Comment(s): GRAVES DISEASE,HERNIA,DJD-LT KNEE REPLACMENT. INTESTINAL ABCESS-HAD COLOSTOMY-SINCE REVERSED AND BLADDER SX. Medications and Allergies Home Medications Medication Instructions Recorded Confirmed Type Citalopram Hydrobromide [CeleXA] 20 mg PO DAILY 03/28/17 08/21/23 History atenoloL [Tenormin] 50 mg PO DAILY 03/28/17 08/21/23 History metFORMIN HCL [Glucophage] 1,000 mg PO BID 07/19/18 08/21/23 History Insulin Glargine,Hum.rec.anlog 40 units SQ HS 09/05/19 08/21/23 History [Basaglar Kwikpen U-100] Levothyroxine Sodium [Synthroid] 150 mcg PO DAILY 09/05/19 08/21/23 History Chlorthalidone 50 mg PO DAILY PRN 03/04/20 08/21/23 History Cimetidine [Tagamet] 400 mg PO DAILY 08/21/23 08/21/23 History Dulaglutide [Trulicity] 1.5 mg SQ MO 08/21/23 08/21/23 History Fluvastatin Sodium [Lescol] 40 mg PO HS 08/21/23 08/21/23 History Pioglitazone [Actos] 45 mg PO DAILY 08/21/23 08/21/23 History Allergies Allergy/AdvReac Type Severity Reaction Status Date / Time bupropion [From Wellbutrin] Allergy Dyspnea/Hea Verified 08/22/23 08:23 daches/Hive s NSAIDS (Non-Steroidal AdvReac Unknown pt states Verified 08/22/23 08:23 Anti-Inflamma no NSAIDS per Physical Exam Vitals: Vital Signs Temp Pulse Pulse Resp BP BP BP 08/22/23 06:28 96 18 134/75 08/22/23 04:29 84 18 114/73 08/22/23 02:11 88 18 117/54 08/21/23 23:40 90 16 124/69 08/21/23 21:43 96 18 109/66 08/21/23 17:00 86 16 116/76 08/21/23 16:36 85 18 112/67 08/21/23 15:45 98.3 F 86 18 154/78 151/78 08/21/23 14:00 90 18 138/72 08/21/23 13:07 98.1 F 91 16 148/82 BP Pulse Ox 08/22/23 06:28 97 08/22/23 04:29 91 L 08/22/23 02:11 93 L 08/21/23 23:40 93 L 08/21/23 21:43 95 08/21/23 17:00 98 08/21/23 16:36 96 08/21/23 15:45 138/72 95 08/21/23 14:00 95 08/21/23 13:07 97 Results 08/21/23 13:23 08/21/23 13:23 Cardiac Enzymes 08/21/23 08/21/23 08/21/23 Range/Units 13:23 13:23 17:58 AST 38 H (14-36) U/L Troponin I <0.012 <0.012 (0.000-0.034) ng/mL 08/21/23 Range/Units 19:15 AST (14-36) U/L Troponin I <0.012 (0.000-0.034) ng/mL Coagulation 08/21/23 Range/Units 13:23 PT 10.1 (10.0-12.5) sec APTT 24.6 (22.0-30.0) sec CBC 08/21/23 Range/Units 13:23 WBC 10.8 H (3.8-10.6) k/uL RBC 3.98 (3.80-5.40) m/uL Hgb 12.0 (11.4-16.0) gm/dL Hct 35.8 (34.0-46.0) % Plt Count 261 (150-450) k/uL Comprehensive Metabolic Panel 08/21/23 Range/Units 13:23 Sodium 137 (137-145) mmol/L Potassium 3.2 L (3.5-5.1) mmol/L Chloride 97 L (98-107) mmol/L Carbon Dioxide 27 (22-30) mmol/L BUN 24 H (7-17) mg/dL Creatinine 0.93 (0.52-1.04) mg/dL Glucose 130 H (74-99) mg/dL Calcium 10.1 (8.4-10.2) mg/dL AST 38 H (14-36) U/L ALT 34 (4-34) U/L Alkaline Phosphatase 64 (38-126) U/L Total Protein 7.5 (6.3-8.2) g/dL Albumin 4.3 (3.5-5.0) g/dL Current Medications Generic Name Dose Route Start Last Admin Trade Name Freq PRN Reason Stop Dose Admin Acetaminophen 650 mg 08/22/23 04:09 Acetaminophen Tab 325 Mg Tab PO Q6HR PRN Fever and/ or Pain Atenolol 50 mg 08/22/23 09:00 Atenolol 50 Mg Tab PO DAILY [facility] Atorvastatin Calcium 10 mg 08/22/23 21:00 Atorvastatin 10 Mg Tab PO HS [facility] Citalopram Hydrobromide 20 mg 08/22/23 09:00 Citalopram Hydrobromide 20 Mg Tab PO DAILY [facility] Dextrose/Water 25 ml 08/22/23 04:11 Dextrose 50% Syringe 50 Ml IVP PER PROTOCOL PRN Hypoglycemia Protocol Dextrose/Water 50 ml 08/22/23 04:11 Dextrose 50% Syringe 50 Ml IVP PER PROTOCOL PRN Hypoglycemia Protocol Ceftriaxone Sodium 2 gm/ 50 mls @ 100 mls/hr 08/22/23 09:00 Sodium Chloride IVPB Q24HR [facility] Protocol Sodium Chloride 1,000 mls @ 75 mls/hr 08/21/23 17:15 08/22/23 06:48 Saline 0.9% IV Not Given .[id number] [facility] Insulin Aspart 0 unit 08/22/23 07:30 08/22/23 07:43 Insulin Aspart (Novolog) 100 Unit/Ml Vial SQ Not Given ACHS [facility] Protocol Insulin Detemir 40 unit 08/22/23 21:00 Insulin Detemir (Levemir) 100 Unit/Ml Syr SQ [facility] Levothyroxine Sodium 150 mcg 08/22/23 06:30 08/22/23 06:32 Levothyroxine 75 Mcg Tab PO 150 mcg DAILY@0630 [facility] Administration Nitroglycerin 0.4 mg 08/21/23 17:03 Nitroglycerin Sl Tabs 0.4 Mg Tab SUBLINGUAL Q5M PRN Chest Pain Nitroglycerin 1 inch 08/21/23 18:00 08/22/23 06:37 Nitroglycerin Oint 1 Inch/Gm Packet TOPICAL 1 inch Q6HR [facility] Administration Ondansetron HCl 4 mg 08/22/23 04:09 Ondansetron 4 Mg/2 Ml Vial IVP Q6HR PRN Nausea And Vomiting Pantoprazole Sodium 40 mg 08/22/23 07:30 Pantoprazole 40 Mg Tablet PO AC-[id number] [facility] Pioglitazone HCl 45 mg 08/22/23 09:00 Pioglitazone 45 Mg Tab PO DAILY [facility] 08/21/23 13:23 08/21/23 13:23
--- NOTE | 2023-08-22 10:58 | CA ---
Transthoracic Echo Report Name: Betsy Vo Age: 58 Gender: F : 1965 Exam Date: 08/22/2023 10:02 Exam Location: [facility] Ht (in): 61 Wt (lb): 220 Ordering Physician: Esthela Simmons Attending/Referring Phys: [id number], Iris Loss Control Consultant Citlaly Araujo RDCS Procedure CPT: Indications: LVF Cardiac Hx: Technical Quality: Contrast 1: Definity Total Dose (mL): 3 Contrast 2: Total Dose (mL): MEASUREMENTS (Male / Female) Normal Values 2D ECHO LV Diastolic Diameter PLAX 4.7 cm 4.2 - 5.9 / 3.9 - 5.3 cm LV Systolic Diameter PLAX 3.0 cm IVS Diastolic Thickness 1.0 cm 0.6 - 1.0 / 0.6 - 0.9 cm LVPW Diastolic Thickness 0.9 cm 0.6 - 1.0 / 0.6 - 0.9 cm LV Relative Wall Thickness 0.4 LVOT Diameter 2.1 cm Aortic Root Diameter 2.6 cm LA Systolic Diameter LX 4.0 cm 3.0 - 4.0 / 2.7 - 3.8 cm LA Volume 42.9 cm??? 18 - 58 / 22 - 52 cm??? LA Volume Index 20.1 cm???/m??? 16 - 28 cm???/m??? DOPPLER AV Peak Velocity 142.6 cm/s AV Peak Gradient 8.1 mmHg AV Mean Velocity 99.1 cm/s AV Mean Gradient 4.5 mmHg AV Velocity Time Integral 29.7 cm LVOT Peak Velocity 99.6 cm/s LVOT Peak Gradient 4.0 mmHg LVOT Velocity Time Integral 21.5 cm LVOT Stroke Volume 73.0 cm??? LVOT Stroke Volume Index 37.1 ml/m??? LVOT Cardiac Index 2915.4 cm???/min???m??? AV Area Cont Eq vti 2.5 cm??? AV Area Cont Eq pk 2.4 cm??? MV Area PHT 3.8 cm??? Mitral E Point Velocity 98.9 cm/s Mitral A Point Velocity 134.1 cm/s Mitral E to A Ratio 0.7 MV Deceleration Time 197.5 ms PV Peak Velocity 97.5 cm/s PV Peak Gradient 3.8 mmHg FINDINGS Left Ventricle Mildly increased septal wall thickness. Left ventricular ejection fraction is estimated at 55-60 %. Normal left ventricular systolic function with no obvious regional wall motion abnormalities. Right Ventricle Normal right ventricular size. Unable to estimate the right ventricular systolic pressure. Right Atrium Normal right atrial size. Left Atrium Mildly increased left atrial diameter. Mitral Valve No mitral regurgitation. Aortic Valve No aortic valve stenosis or regurgitation. Tricuspid Valve No tricuspid regurgitation. Pulmonic Valve No pulmonic regurgitation. Pericardium No pericardial effusion. Aorta Normal size aortic root. CONCLUSIONS Left ventricular ejection fraction 55-60% Mildly dilated left atrium No mitral regurgitation No tricuspid regurgitation Previewed by: Dr. Rhys Landin DO (Electronically Signed) Final Date: 22 August 2023 10:57
[2023-08-22 11:27] LABS: LDL Cholesterol,Calculated 130.4 mg/dL (0.0-131.0)
[2023-08-22] MEDS: atenoloL 50 MG TAB PO SCH (11:55)
[2023-08-22] MEDS: CITALOPRAM HYDROBROMIDE 20 MG TAB PO SCH (11:55)
[2023-08-22] MEDS: PANTOPRAZOLE 40 MG TABLET PO SCH (11:55)
[2023-08-22] MEDS: PIOGLITAZONE 45 MG TAB PO SCH (11:56)
--- NOTE | 2023-08-22 11:56 | P.HPIM ---
History of Present Illness 58-year-old female came in with nonexertional left-sided chest pain radiating to the left arm along with weird feeling and tingling and numbness on the left side of the face. Patient denies any smoking history patient has fat Lis history of premature coronary artery disease, brother had coronary disease and CABG at age 50. Patient denies any diaphoresis associate with chest pain chest pain lasted for 45 minutes to 1 hour. EKG sinus rhythm without any acute ST-T wave changes chest x-ray did not show any significant abnormality troponins were negative. Patient was eval by cardiology and the recommending stress test and patient is undergoing stress test at this time. Patient also has lactic acidosis and is on metformin at home blood sugars are well-controlled here I do not have any hemoglobin A1c available patient is also hypokalemic with low blood pressure and is on chlorthalidone at home. Patient's LDL is 130 REVIEW OF SYSTEMS: CONSTITUTIONAL: No fever, no malaise, no fatigue. HEENT: No recent visual problems or hearing problems. Denied any sore throat. CARDIOVASCULAR: No orthopnea, PND, no palpitations, no syncope. PULMONARY: No shortness of breath, no cough, no hemoptysis. GASTROINTESTINAL: No diarrhea, no nausea, no vomiting, no abdominal pain. NEUROLOGICAL: No headaches, no weakness, no numbness. HEMATOLOGICAL: Denies any bleeding or petechiae. GENITOURINARY: Denies any burning micturition, frequency, or urgency. MUSCULOSKELETAL/RHEUMATOLOGICAL: Denies any joint pain, swelling, or any muscle pain. ENDOCRINE: Denies any polyuria or polydipsia. The rest of the 14-point review of systems is negative. PHYSICAL EXAMINATION: GENERAL: The patient is alert and oriented x3, not in any acute distress. Well developed, well nourished. HEENT: Pupils are round and equally reacting to light. EOMI. No scleral icterus. No conjunctival pallor. Normocephalic, atraumatic. No pharyngeal erythema. No thyromegaly. CARDIOVASCULAR: S1 and S2 present. No murmurs, rubs, or gallops. PULMONARY: Chest is clear to auscultation, no wheezing or crackles. ABDOMEN: Soft, nontender, nondistended, normoactive bowel sounds. No palpable organomegaly. MUSCULOSKELETAL: No joint swelling or deformity. EXTREMITIES: No cyanosis, clubbing, or pedal edema. NEUROLOGICAL: Gross neurological examination did not reveal any focal deficits. SKIN: No rashes. Assessment and plan -Chest pain with some typical features: Patient will undergo stress test if that is negative and if cleared by cardiology patient will be discharged -Hypokalemia secondary to chlorthalidone patient blood pressure is low probably will not require chlorthalidone will discontinue chlorthalidone at this time continue with atenolol at home. -Lactic acidosis secondary to metformin with some contribution from dehydration from chlorthalidone Hyperlipidemia patient will benefit from dietary changes send a low-dose of statin -Hypertension -Type 2 diabetes mellitus with well-controlled blood sugars -Hypothyroidism -Gastroesophageal reflux disease Patient will be discharged later today if stress test is negative DVT prophylaxis: Early ambulation Past Medical History Past Medical History: Diabetes Mellitus, GERD/Reflux, Hypertension, Renal Disease, Thyroid Disorder Additional Past Medical History / Comment(s): Difficulty swallowing. HIATAL HERNIA, GRAVES DISEASE-"HAD HER THYROID RADIOACTIVELY DISSOLVED", KIDNEY STONES, ENVIRONMENTAL ALLERGIES, CELLULITIS LEFT LEG, ANEMIA. History of Any Multi-Drug Resistant Organisms: None Reported Past Surgical History: Cholecystectomy, Heart Catheterization, Orthopedic Surgery, Tonsillectomy Additional Past Surgical History / Comment(s): LITHOTRIPSY, LAPROSCOPIC SX, LT MEDIAL/LAT TIB SX D/T INJURY, THYROID RADIOACTIVEY DISSOLVED. , HEART CATH (MPH 2017?) Past Anesthesia/Blood Transfusion Reactions: No Reported Reaction Additional Past Anesthesia/Blood Transfusion Reaction / Comment(s): Pt has never received blood. Past Psychological History: Anxiety Past Alcohol Use History: Rare - Past Family History Father Family Medical History: Dementia, Diabetes Mellitus Mother Family Medical History: Cancer, Diabetes Mellitus, Thyroid Disorder Additional Family Medical History / Comment(s): GRAVES DISEASE,HERNIA,DJD-LT KNEE REPLACMENT. INTESTINAL ABCESS-HAD COLOSTOMY-SINCE REVERSED AND BLADDER SX. Medications and Allergies Home Medications Medication Instructions Recorded Confirmed Type Citalopram Hydrobromide [CeleXA] 20 mg PO DAILY 03/28/17 08/21/23 History atenoloL [Tenormin] 50 mg PO DAILY 03/28/17 08/21/23 History metFORMIN HCL [Glucophage] 1,000 mg PO BID 07/19/18 08/21/23 History Insulin Glargine,Hum.rec.anlog 40 units SQ HS 09/05/19 08/21/23 History [Basaglar Isaacikpen U-100] Levothyroxine Sodium [Synthroid] 150 mcg PO DAILY 09/05/19 08/21/23 History Chlorthalidone 50 mg PO DAILY PRN 03/04/20 08/21/23 History Cimetidine [Tagamet] 400 mg PO DAILY 08/21/23 08/21/23 History Dulaglutide [Trulicity] 1.5 mg SQ MO 08/21/23 08/21/23 History Fluvastatin Sodium [Lescol] 40 mg PO HS 08/21/23 08/21/23 History Pioglitazone [Actos] 45 mg PO DAILY 08/21/23 08/21/23 History Allergies Allergy/AdvReac Type Severity Reaction Status Date / Time bupropion [From Wellbutrin] Allergy Dyspnea/Hea Verified 08/22/23 08:23 daches/Hive s NSAIDS (Non-Steroidal AdvReac Unknown pt states Verified 08/22/23 08:23 Anti-Inflamma no NSAIDS per Physical Exam Vitals: Vital Signs Temp Pulse Pulse Pulse Pulse Pulse Resp 08/22/23 08:00 16 08/22/23 07:00 97.4 F L 86 90 91 16 08/22/23 06:28 96 18 08/22/23 04:29 84 18 08/22/23 02:11 88 18 08/21/23 23:40 90 16 08/21/23 21:43 96 18 08/21/23 17:00 86 16 08/21/23 16:36 85 18 08/21/23 15:45 98.3 F 86 18 08/21/23 14:00 90 18 08/21/23 13:07 98.1 F 91 16 BP BP BP BP Pulse Ox 08/22/23 08:00 08/22/23 07:00 100/66 109/69 105/67 95 08/22/23 06:28 134/75 97 08/22/23 04:29 114/73 91 L 08/22/23 02:11 117/54 93 L 08/21/23 23:40 124/69 93 L 08/21/23 21:43 109/66 95 08/21/23 17:00 116/76 98 08/21/23 16:36 112/67 96 08/21/23 15:45 154/78 151/78 138/72 95 08/21/23 14:00 138/72 95 08/21/23 13:07 148/82 97 Intake and Output 08/21/23 08/22/23 08/22/23 22:59 06:59 14:59 Other: Voiding Method Toilet Results CBC & Chem 7: 08/21/23 13:23 08/21/23 13:23 Labs: Abnormal Lab Results - Last 24 Hours (Table) 08/21/23 08/21/23 08/21/23 Range/Units 13:23 13:23 13:23 WBC 10.8 H (3.8-10.6) k/uL Neutrophils # 8.8 H (1.3-7.7) k/uL Potassium 3.2 L (3.5-5.1) mmol/L Chloride 97 L (98-107) mmol/L BUN 24 H (7-17) mg/dL Glucose 130 H (74-99) mg/dL POC Glucose (mg/dL) (70-110) mg/dL Plasma Lactic Acid Siva (0.7-2.0) mmol/L AST 38 H (14-36) U/L Triglycerides (0.00-149.00) mg/dL Cholesterol (0.00-200.00) mg/dL VLDL Cholesterol, Calc (5.00-40.00) mg/dL Urine Appearance Cloudy H (Clear) Urine Protein Trace H (Negative) Urine Nitrite Positive H (Negative) Urine Bilirubin 1+ H (Negative) Ur Leukocyte Esterase Moderate H (Negative) Urine WBC 51 H (0-5) /hpf Ur Squamous Epith Cells 5 H (0-4) /hpf Urine Bacteria Moderate H (None) /hpf Urine Mucus Rare H (None) /hpf 08/21/23 08/21/23 08/22/23 Range/Units 15:39 19:15 04:36 WBC (3.8-10.6) k/uL Neutrophils # (1.3-7.7) k/uL Potassium (3.5-5.1) mmol/L Chloride (98-107) mmol/L BUN (7-17) mg/dL Glucose (74-99) mg/dL POC Glucose (mg/dL) 134 H (70-110) mg/dL Plasma Lactic Acid Siva 2.9 H* 2.8 H* (0.7-2.0) mmol/L AST (14-36) U/L Triglycerides (0.00-149.00) mg/dL Cholesterol (0.00-200.00) mg/dL VLDL Cholesterol, Calc (5.00-40.00) mg/dL Urine Appearance (Clear) Urine Protein (Negative) Urine Nitrite (Negative) Urine Bilirubin (Negative) Ur Leukocyte Esterase (Negative) Urine WBC (0-5) /hpf Ur Squamous Epith Cells (0-4) /hpf Urine Bacteria (None) /hpf Urine Mucus (None) /hpf 08/22/23 Range/Units 07:47 WBC (3.8-10.6) k/uL Neutrophils # (1.3-7.7) k/uL Potassium (3.5-5.1) mmol/L Chloride (98-107) mmol/L BUN (7-17) mg/dL Glucose (74-99) mg/dL POC Glucose (mg/dL) (70-110) mg/dL Plasma Lactic Acid Siva (0.7-2.0) mmol/L AST (14-36) U/L Triglycerides 220.00 H (0.00-149.00) mg/dL Cholesterol 215.00 H (0.00-200.00) mg/dL VLDL Cholesterol, Calc 44.00 H (5.00-40.00) mg/dL Urine Appearance (Clear) Urine Protein (Negative) Urine Nitrite (Negative) Urine Bilirubin (Negative) Ur Leukocyte Esterase (Negative) Urine WBC (0-5) /hpf Ur Squamous Epith Cells (0-4) /hpf Urine Bacteria (None) /hpf Urine Mucus (None) /hpf
[2023-08-22 12:10] LABS: Glucose,Whole Blood 224 mg/dL (70-110)
--- NOTE | 2023-08-22 12:34 | NM ---
EXAMINATION TYPE: NM stress lexiscan cardiolite DATE OF EXAM: 08/22/2023 COMPARISON: NONE CLINICAL INDICATION: Female, 58 years old with history of chest pain; TECHNIQUE: After the intravenous administration of 10.5 mCi Tc 99m Sestamibi - Cardiolite resting SP ECT images acquired 77 minutes post injection. The patient received 0.4mg Lexiscan, 25.1 mCi Tc 99m Sestamibi - Stress images obtained [address] injection FINDINGS: Review of stress and rest SPECT images demonstrates no distinct perfusion abnormality. Gated analysi s shows normal wall motion with an estimated left ventricular ejection fraction of 63 %. IMPRESSION: No scintigraphic evidence for reversible ischemia.
--- NOTE | 2023-08-22 12:40 | P.DS ---
Providers Date of admission: 08/21/23 17:04 Attending physician: Yashira Patiño Consults: 08/21/23 17:03 Consult Physician Urgent Consulting Provider: [facility] Consult Reason/Comments: Chest pain Do you want consulting provider notified?: Yes Primary care physician: Allen Moreno [facility] Course: 58-year-old female came in with nonexertional left-sided chest pain radiating to the left arm along with weird feeling and tingling and numbness on the left side of the face. Patient denies any smoking history patient has fat Lis history of premature coronary artery disease, brother had coronary disease and CABG at age 50. Patient denies any diaphoresis associate with chest pain chest pain lasted for 45 minutes to 1 hour. EKG sinus rhythm without any acute ST-T wave changes chest x-ray did not show any significant abnormality troponins were negative. Patient was eval by cardiology and the recommending stress test and patient is undergoing stress test at this time. Patient also has lactic acidosis and is on metformin at home blood sugars are well-controlled here I do not have any hemoglobin A1c available patient is also hypokalemic with low blood pressure and is on chlorthalidone at home. Patient's LDL is 130 PHYSICAL EXAMINATION: GENERAL: The patient is alert and oriented x3, not in any acute distress. Well developed, well nourished. HEENT: Pupils are round and equally reacting to light. EOMI. No scleral icterus. No conjunctival pallor. Normocephalic, atraumatic. No pharyngeal erythema. No thyromegaly. CARDIOVASCULAR: S1 and S2 present. No murmurs, rubs, or gallops. PULMONARY: Chest is clear to auscultation, no wheezing or crackles. ABDOMEN: Soft, nontender, nondistended, normoactive bowel sounds. No palpable organomegaly. MUSCULOSKELETAL: No joint swelling or deformity. EXTREMITIES: No cyanosis, clubbing, or pedal edema. NEUROLOGICAL: Gross neurological examination did not reveal any focal deficits. SKIN: No rashes. Assessment and plan -Chest pain with some typical features: Ruled out acute coronary syndrome send patient had a stress test which was negative and will be discharged today -Hypokalemia secondary to chlorthalidone patient blood pressure is low probably will not require chlorthalidone will discontinue chlorthalidone at this time continue with atenolol at home. -Lactic acidosis secondary to metformin with some contribution from dehydration from chlorthalidone Hyperlipidemia patient will benefit from dietary changes send a low-dose of statin -Hypertension -Type 2 diabetes mellitus with well-controlled blood sugars -Hypothyroidism -Gastroesophageal reflux disease Plan - Discharge Summary New Discharge Prescriptions: Discontinued metFORMIN HCL [Glucophage] 1,000 mg PO BID Chlorthalidone 50 mg PO DAILY PRN PRN Reason: Edema No Action Citalopram Hydrobromide [CeleXA] 20 mg PO DAILY atenoloL [Tenormin] 50 mg PO DAILY Levothyroxine Sodium [Synthroid] 150 mcg PO DAILY Insulin Glargine,Hum.rec.anlog [Basaglar Kwikpen U-100] 40 units SQ HS Pioglitazone [Actos] 45 mg PO DAILY Cimetidine [Tagamet] 400 mg PO DAILY Dulaglutide [Trulicity] 1.5 mg SQ MO Fluvastatin Sodium [Lescol] 40 mg PO HS Discharge Medication List Citalopram Hydrobromide [CeleXA] 20 mg PO DAILY 03/28/17 [History] atenoloL [Tenormin] 50 mg PO DAILY 03/28/17 [History] Insulin Glargine,Hum.rec.anlog [Basaglar Kwikpen U-100] 40 units SQ HS 09/05/19 [History] Levothyroxine Sodium [Synthroid] 150 mcg PO DAILY 09/05/19 [History] Cimetidine [Tagamet] 400 mg PO DAILY 08/21/23 [History] Dulaglutide [Trulicity] 1.5 mg SQ MO 08/21/23 [History] Fluvastatin Sodium [Lescol] 40 mg PO HS 08/21/23 [History] Pioglitazone [Actos] 45 mg PO DAILY 08/21/23 [History] Follow up Appointment(s)/Referral(s): Rhys Landin DO [STAFF PHYSICIAN] - 1 Week Allen Moreno DO [Primary Care Provider] - 3 Days Discharge Disposition: HOME SELF-CARE
[2023-08-22] MEDS ORDERED: INSULIN DETEMIR (LEVEMIR) 100 UNIT/ML SYR SQ SCH (21:00)
[2023-08-22] MEDS ORDERED: ATORVASTATIN 10 MG TAB PO SCH (21:00)
--- NOTE | 2023-08-23 11:56 | CA ---
Lexiscan Nuclear Stress Test Report Name: eBtsy Vo Exam Date: 08/22/2023 10:45 Exam Location: [facility] Ht (in): 61 Wt (lb): 220 BSA: 1.97 Ordering Phys: Esthela Simmons Referring Phys: MEL/JUDIE Technologist: Ben Cavazos Age: 58 Gender: F : 1965 Procedure CPT: Indications: Reflex order-Stress test ICD-10 Codes: Patient History: CHEST PAIN, NUMBNESS IN FACE/NECK, HTN, DIABETIC, HYPERCHOLESTEROLEMIA, PRIOR SMOKER, PRIOR CATH Medications: Meds past 24 hrs: Pretest Chest Pain: STRESS TEST Lexiscan Protocol Exercise Duration (min:sec): 02:[address] Depressions (mm): Angina Score: Ramos Score: Resting HR (bpm): 87 Peak HR (bpm): 115 Resting BP (mmHg): 111 / 58 Peak BP (mmHg): 147 / 53 MPHR: 160 Target HR: 136 % MPHR: 72 METS: 1.0 Total Dose: Peak Dose: Atropine: Double Product: 23285 BP Response: Stress Termination: INFUSION COMPLETE Stress Symptoms: NAUSEA Stress Summary: ECG ANALYSIS Resting ECG: Stress ECG: CONCLUSIONS At baseline EKG showed normal sinus rhythm, normal axis, no significant ST or T wave abnormalities. Patient recieved IV infusion of Lexiscan 0.4mg and at peak infusion EKG showed no change from baseline. Conclusions: 1. Normal EKG response to Lexiscan infusion 2. Nuclear imaging to be reported separately. Dr. Rhys Landin DO (Electronically Signed) Final Date: 23 August 2023 11:55
== END 2023-08-22 15:50 | disposition home or self-care (01) ==
LOC: EC 13:03 → 6NMEDSUR 17:04
PROVIDERS: ADMIT Hospitalist; ATTEND Hospitalist
DX: R07.89 Other chest pain (principal); E03.9 Hypothyroidism, unspecified; E11.9 Type 2 diabetes mellitus without complications; E05.00 Thyrotoxicosis with diffuse goiter without thyrotoxic crisis or storm; K44.9 Diaphragmatic hernia without obstruction or gangrene; E78.00 Pure hypercholesterolemia, unspecified; F41.9 Anxiety disorder, unspecified; K21.9 Gastro-esophageal reflux disease without esophagitis; E87.6 Hypokalemia; I10 Essential (primary) hypertension; E66.01 Morbid (severe) obesity due to excess calories; E87.20 Acidosis, unspecified; Z79.84 Long term (current) use of oral hypoglycemic drugs; Z79.899 Other long term (current) drug therapy; Z68.41 Body mass index [BMI] 40.0-44.9, adult; Z92.3 Personal history of irradiation; Z87.442 Personal history of urinary calculi; Z79.890 Hormone replacement therapy; Z83.3 Family history of diabetes mellitus
CPT/HCPCS: 96376; 96361; 96365; 96375; 99285; 36415; 93005; 93017; 93306; 80061; 80053; 83605; 83735; 84484; 85025; 85610; 85730; 81001; 87040; 87086; 87077; 87186; 71046; 78452; G0378 ×2; A9500; J2405; J0696 ×2; J2785